=== PATIENT | male | born 1945 | race Caucasian/White ===

== ENCOUNTER 2016-11-26 13:41 | Inpatient (IN) | payer OTHER, MEDICARE ==
[2016-11-26] VITALS (12 sets, daily range): BP systolic 95–206; BP diastolic 64–110; PULSE 63–106; RESP 16–18; TEMP 97.8; O2SAT 96–100
[~2016-11-26] VITALS: Ht 185.4 cm; Wt 123.1 kg
[2016-11-26] MEDS ORDERED: MORPHINE SULFATE 8 MG/ML INJ ONE (13:44)
[2016-11-26] MEDS ORDERED: FUROSEMIDE 40 MG/4 ML VIAL ONE (13:53)
[2016-11-26] MEDS ORDERED: PROPOFOL 1000 MG/100 ML INJ 100 ML ONE ×2 (14:04→14:54)
[2016-11-26 14:07] LABS: AUTOMATED NEUTROPHIL # 14.9 TH/MM3 (1.8-7.7); BASOPHIL # 0.1 TH/MM3 (0-0.2); BASOPHIL % 0.4 % (0.0-2.0); EOSINOPHIL # 0.1 TH/MM3 (0-0.4); EOSINOPHIL % 0.5 % (0.0-4.0); HEMATOCRIT 40.9 % (39.0-51.0); HEMO FLAGS DIFF FINAL; I-STAT SODIUM 130 MMOL/L (138-146); LYMPH % 14.2 % (9.0-44.0); LYMPHOCYTE # 2.6 TH/MM3 (1.0-4.8); MEAN CELL VOLUME 85.3 FL (80.0-100.0); MEAN CORPUSCULAR HEMOGLOBIN 28.9 PG (27.0-34.0); MEAN CORPUSCULAR HGB CONC 33.9 % (32.0-36.0); MONO % 4.7 % (0.0-8.0); NEUT % 80.2 % (16.0-70.0); PLATELET COUNT 389 TH/MM3 (150-450); RED CELL DISTRIBUTION WIDTH 14.3 % (11.6-17.2); WHITE BLOOD COUNT 18.6 TH/MM3 (4.0-11.0)
[2016-11-26 14:15] LABS: INTERNATIONAL NORMALIZED RATIO 1.1 RATIO; PROTHROMBIN TIME - PATIENT 11.9 SEC (9.8-11.6)
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
[2016-11-26 14:16] LABS: APTT (PATIENT) 28.1 SEC (24.3-30.1)
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
[2016-11-26] MEDS ORDERED: DEXTROSE 50% IN WATER 50 ML SYRINGE ONE (14:33)
[2016-11-26] MEDS ORDERED: CALCIUM CHLORIDE 10% SOLN 1 GRAM/10 ML SYR ONE (14:34)
[2016-11-26] MEDS ORDERED: RESP: ALBUTEROL 2.5 MG/3 ML NEB (SCH) ONE ×2 (14:36→14:37)
[2016-11-26] MEDS ORDERED: CALCIUM GLUCONATE 10% 1 GM/10 ML VIAL ONE (14:38)
[2016-11-26] MEDS ORDERED: ETOMIDATE 20 MG/10 ML VIAL ONE (14:47)
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
[2016-11-26 15:19] LABS: BLOOD, URINE TRACE (NEG); COMMENT (UR) CATH-CULT NOT IND; CULTURE IF INDICATED CATH CULTURE NOT IND; GLUCOSE,URINE 1000 mg/dL (NEG); KETONE, URINE NEG (NEG); MUCUS URINE FEW /lpf (OCC); NITRITE,URINE NEG (NEG); PH, URINE 6.5 (5.0-8.5); URINE COLOR YELLOW (YELLW/STRAW)
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
[2016-11-26] MEDS ORDERED: IOHEXOL 350 MG/ML 10 ML VIAL (for RAD DIAG) IV ONE (15:28)
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
[2016-11-26] MEDS ORDERED: FURO1TAB60 PO (15:44)
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
[2016-11-26] MEDS ORDERED: MISCELLANEOUS NURSING INFORMATION XX SCH (16:45)
[2016-11-26] MEDS ORDERED: CHLORHEXIDINE GLUCONATE 2 % 1 PACK (2 CLOTHS) TOP PRN (16:45)
[2016-11-26] MEDS ORDERED: SODIUM CHLORIDE 0.9% FLUSH 10 ML FLUSH IV FLUSH PRN (16:45)
[2016-11-26] MEDS ORDERED: ETOMIDATE 40 MG/20 ML VIAL ONE (16:57)
[2016-11-26] MEDS ORDERED: ROCURONIUM INJ 50 MG/5 ML VIAL IV ONE (17:00)
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
[2016-11-26 17:22] LABS: ALT (GPT) 20 U/L (12-78); ANION GAP 12 MEQ/L (5-15); AST (GOT) 28 U/L (15-37); BICARBONATE 25.9 MEQ/L (21.0-32.0); BLOOD UREA NITROGEN 33 MG/DL (7-18); CHLORIDE 93 MEQ/L (98-107); GLOMERULAR FILTRATION RATE 50 ML/MIN (>89); POTASSIUM 3.9 MEQ/L (3.5-5.1); SODIUM (NA) 131 MEQ/L (136-145)
[2016-11-26 17:25] LABS: ALKALINE PHOSPHATASE 73 U/L (45-117); TOTAL BILIRUBIN ADULT 0.9 MG/DL (0.2-1.0)
[2016-11-26] MEDS ORDERED: ETOMIDATE 20 MG/10 ML VIAL IV PUSH ONE (17:45)
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
[2016-11-26] MEDS ORDERED: GLUCAGON 1 MG/ML VIAL IM/SQ PRN (18:00)
[2016-11-26] MEDS ORDERED: DEXTROSE 50% IN WATER 50 ML VIAL(D50) IV PRN (18:00)
[2016-11-26] MEDS ORDERED: SODIUM POLYSTYRENE SULFONATE SUSP 15 GM/60 ML CUP OG-TUBE SCH (18:00)
[2016-11-26] MEDS: INSULIN ASPART SUPPLEMENTAL SCALE SQ SCH (18:00)
[2016-11-26] MEDS: fentaNYL DRIP 250 ML IV SCH (19:32)
[2016-11-26 19:57] LABS: BLOOD GAS BASE EXCESS 4.2 mmol/L (-2-2); BLOOD GAS HCO3 27 mmol/L (22-26); BLOOD GAS METHEMOGLOBIN 1.1 % (0-2); BLOOD GAS O2 HGB SATURATION 95 % (90-100); BLOOD GAS PCO2 30 mmHg (38-42); BLOOD GAS PO2 92 mmHg (61-120); BLOOD GAS TOTAL HGB 12.6 G/DL (12.0-16.0); TEMP CORR TO 98.6
[2016-11-26 19:58] LABS: CRITICAL VALUE YES; DRAW SITE LT RADIAL; FIO2 40 %; NUMBER OF ARTERIAL PUNCTURES 1; OXYGEN DEVICE VENTILATOR; STAT NO; ULNAR PULSE PRESENT; VENT SETTINGS VOLUME AC 18/550/+5
[2016-11-26] MEDS: SODIUM CHLOR 0.9% 1000 ML INJ 1,000 ML IV SCH (21:01)
[2016-11-26] MEDS: CHLORHEXIDINE 0.12% (ORAL KIT) 15 ML CUP MT SCH (21:02)
[2016-11-26] MEDS: SODIUM CHLORIDE 0.9% FLUSH 10 ML FLUSH IV FLUSH SCH (21:02)
[2016-11-26] MEDS: PIPERACIL-TAZO 3.375 GM PREMIX 50 ML IV SCH (21:03)
[2016-11-26] MEDS: PROPOFOL 1000 MG/100 ML INJ 100 ML IV SCH ×2 (21:05→23:30)
[2016-11-26] MEDS: RESP: ALBUTEROL 2.5 MG/IPRATROPIUM 0.5 MG NEB (SCH) NEB (21:55)
[2016-11-27] VITALS (52 sets, daily range): BP systolic 90–129; BP diastolic 55–77; PULSE 67–96; RESP 17–26; TEMP 97.7–99.2; O2SAT 97–100
[2016-11-27] MEDS: PIPERACIL-TAZO 3.375 GM PREMIX 50 ML IV SCH ×4 (01:24→20:49)
[2016-11-27 01:26] LABS: BICARBONATE 25.4 MEQ/L (21.0-32.0)
[2016-11-27 01:28] LABS: POTASSIUM 4.1 MEQ/L (3.5-5.1)
[2016-11-27 01:54] LABS: CKMB 6.9 NG/ML (0.5-3.6)
[2016-11-27] MEDS: PROPOFOL 1000 MG/100 ML INJ 100 ML IV SCH ×6 (02:22→22:48)
[2016-11-27] MEDS: RESP: ALBUTEROL 2.5 MG/IPRATROPIUM 0.5 MG NEB (SCH) NEB ×4 (03:12→23:50)
[2016-11-27] MEDS: CHLORHEXIDINE GLUCONATE 2 % 1 PACK (2 CLOTHS) TOP SCH (03:30)
--- NOTE | 2016-11-27 05:41 | RADRPT ---
EXAM DATE/TIME: 11/27/2016 03:24 [facility] COMPARISON: CHEST SINGLE AP, November 26, 2016, 17:11. INDICATIONS : Shortness of breath. MEDICAL HISTORY : None. SURGICAL HISTORY : None. ENCOUNTER: Subsequent ACUITY: 2 days PAIN SCORE: 0/10 LOCATION: Bilateral chest FINDINGS: A single AP erect view of the chest was obtained again demonstrates endotracheal tube in place with t ip approximately 4 cm above the carlos. A nasogastric tube is again seen coursing through the esophag us and into the stomach. There is hazy opacity remaining at the left lung base with obscuration of th e left hemidiaphragm and blunting of costophrenic angle. The heart size is within normal limits with no perihilar edema. The right lung is clear. The patient is status post right mastectomy and axillary dissection. The bony thorax is otherwise unremarkable. CONCLUSION: 1. Hazy opacity remains at the left lung base with blunting of the costophrenic angle consistent with a small effusion. 2. The patient remains intubated. Deshawn De Dios MD on November 27, 2016 at 5:38 Board Certified Radiologist. This report was verified electronically.
[2016-11-27 05:45] LABS: AUTOMATED NEUTROPHIL # 6.4 TH/MM3 (1.8-7.7); BASOPHIL # 0.1 TH/MM3 (0-0.2); BASOPHIL % 0.6 % (0.0-2.0); EOSINOPHIL # 0.1 TH/MM3 (0-0.4); EOSINOPHIL % 0.8 % (0.0-4.0); HEMATOCRIT 38.1 % (39.0-51.0); HEMO FLAGS DIFF FINAL; LYMPH % 27.5 % (9.0-44.0); LYMPHOCYTE # 2.7 TH/MM3 (1.0-4.8); MEAN CELL VOLUME 84.7 FL (80.0-100.0); MEAN CORPUSCULAR HEMOGLOBIN 28.1 PG (27.0-34.0); MEAN CORPUSCULAR HGB CONC 33.2 % (32.0-36.0); MONO % 6.5 % (0.0-8.0); NEUT % 64.6 % (16.0-70.0); PLATELET COUNT 291 TH/MM3 (150-450); RED CELL DISTRIBUTION WIDTH 14.5 % (11.6-17.2); WHITE BLOOD COUNT 9.8 TH/MM3 (4.0-11.0)
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
[2016-11-27] MEDS: INSULIN ASPART SUPPLEMENTAL SCALE SQ SCH ×5 (06:00→23:35)
[2016-11-27 06:06] LABS: ALKALINE PHOSPHATASE 70 U/L (45-117); ALT (GPT) 22 U/L (12-78); ANION GAP 11 MEQ/L (5-15); AST (GOT) 55 U/L (15-37); BICARBONATE 29.2 MEQ/L (21.0-32.0); BLOOD UREA NITROGEN 34 MG/DL (7-18); CHLORIDE 94 MEQ/L (98-107); CREATINE KINASE 1246 U/L (39-308); GLOMERULAR FILTRATION RATE 52 ML/MIN (>89); POTASSIUM 3.3 MEQ/L (3.5-5.1); SODIUM (NA) 134 MEQ/L (136-145); TOTAL BILIRUBIN ADULT 0.8 MG/DL (0.2-1.0)
[2016-11-27 06:37] LABS: CKMB 6.7 NG/ML (0.5-3.6)
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
[2016-11-27] MEDS: CHLORHEXIDINE 0.12% (ORAL KIT) 15 ML CUP MT SCH ×2 (08:00→20:49)
[2016-11-27] MEDS: SODIUM CHLORIDE 0.9% FLUSH 10 ML FLUSH IV FLUSH SCH ×2 (08:55→20:49)
[2016-11-27] MEDS: ASPIRIN 81 MG CHEW TAB CHEW SCH (08:55)
[2016-11-27] MEDS: PANTOPRAZOLE SODIUM 40 MG VIAL IV SCH (08:55)
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
--- NOTE | 2016-11-27 11:42 | ECHRPT ---
Indication: eval LVEF CONCLUSIONS Normal left ventricular size. Wall thickness is normal. The left ventricular systolic function is severely reduced with an estimated ejection fraction in th e range of 20-25%. There is global hypokinesis Mitral annular calcification is present. BP: 94 / 62 HR: 67 Rhythm: Sinus MEASUREMENTS (Male / Female) Normal Values Technical Quality:Fair 2D ECHO LV Diastolic Diameter PLAX 4.9 cm 4.2 - 5.9 / 3.9 - 5.3 cm LV Systolic Diameter PLAX 4.4 cm IVS Diastolic Thickness 0.9 cm 0.6 - 1.0 / 0.6 - 0.9 cm LVPW Diastolic Thickness 0.8 cm 0.6 - 1.0 / 0.6 - 0.9 cm LV Relative Wall Thickness 0.3 LA Systolic Diameter LX 3.7 cm 3.0 - 4.0 / 2.7 - 3.8 cm DOPPLER Mitral E Point Velocity 27.0 cm/s Mitral A Point Velocity 47.4 cm/s Mitral E to A Ratio 0.6 TR Peak Velocity 164.0 cm/s TR Peak Gradient 10.8 mmHg FINDINGS LEFT VENTRICLE Normal left ventricular size. Wall thickness is normal. The left ventricular systolic function is severely reduced with an estimated ejection fraction in th e range of 20-25%. Global hypokinesis. RIGHT VENTRICLE Normal right ventricular size and systolic function. LEFT ATRIUM The left atrial size is normal. RIGHT ATRIUM The right atrial size is normal. ATRIAL SEPTUM Normal atrial septal thickness without atrial level shunting by limited color doppler interrogation. AORTA The aortic root and proximal ascending aorta are normal in size on limited imaging. MITRAL VALVE Mitral annular calcification is present. AORTIC VALVE Trileaflet aortic valve. No aortic valve stenosis or regurgitation. TRICUSPID VALVE Structurally normal tricuspid valve. No tricuspid valve stenosis or regurgitation. PULMONARY VALVE The pulmonary valve is not well visualized. VESSELS The inferior vena cava is normal in size. PERICARDIUM No pericardial effusion. She Pierce MD, FACC (Electronically Signed) Final Date:27 November 2016 11:42
--- NOTE | 2016-11-27 12:27 | EKG ---
Date Performed: 11/26/2016 Time Performed: 13:53:58 PTAGE: 89 years EKG: JUNCTIONAL TACHYCARDIA MARKED RIGHT AXIS DEVIATION INTRAVENTRICULAR CONDUCTION DELAY ABNORM AL ECG NO PREVIOUS TRACING DOCTOR: Tyler Arceo Interpretating Date/Time 11/27/2016 12:26:10
[2016-11-27] MEDS: SODIUM CHLOR 0.9% 1000 ML INJ 1,000 ML IV SCH ×2 (12:30→20:48)
--- NOTE | 2016-11-27 14:37 | EKG ---
Date Performed: 11/26/2016 Time Performed: 18:22:07 PTAGE: 89 years EKG: Sinus rhythm MARKED RIGHT AXIS DEVIATION INTRAVENTRICULAR CONDUCTION DELAY Compared to prior tracing no significa nt change ABNORMAL ECG PREVIOUS TRACING :11/26/16 DOCTOR: Tyler Arceo Interpretating Date/Time 11/27/2016 14:36:46
--- NOTE | 2016-11-27 14:41 | PD.ORT.PN ---
Subjective Subjective Remarks The patient is intubated and sedated. Patient is resting in bed in NAD. Objective Vitals Vital Signs Date Time Temp Pulse Resp B/P Pulse Ox O2 Delivery O2 Flow Rate FiO2 11/27/16 12:00 77 11/27/16 12:00 40 11/27/16 12:00 99.0 78 18 109/67 98 11/27/16 11:11 99 40 11/27/16 10:00 69 11/27/16 10:00 69 11/27/16 08:00 99.0 69 18 118/56 98 11/27/16 08:00 69 11/27/16 08:00 40 11/27/16 07:32 100 40 11/27/16 06:00 69 11/27/16 04:00 67 11/27/16 04:00 98.8 67 18 94/62 98 11/27/16 03:41 99 40 11/27/16 02:00 73 11/27/16 00:12 100 40 11/27/16 00:00 67 11/27/16 00:00 97.7 67 18 111/70 99 11/26/16 22:00 63 11/26/16 21:57 100 Ventilator 11/26/16 20:30 99 40 11/26/16 20:00 66 11/26/16 20:00 97.8 66 18 95/64 98 11/26/16 18:23 94 16 146/89 100 Ventilator 11/26/16 18:06 100 100 11/26/16 18:06 100 40 11/26/16 17:37 106 18 140/91 97 Ventilator 50 11/26/16 17:30 100 Non-Rebreather 15 100 11/26/16 17:12 50 11/26/16 17:10 98 16 206/110 99 Ventilator 11/26/16 17:00 105 16 152/85 96 Non-Rebreather 15 11/26/16 15:30 100 100 11/26/16 14:40 100 50 I/O 11/26/16 11/26/16 11/26/16 11/27/16 11/27/16 11/27/16 07:00 15:00 23:00 07:00 15:00 23:00 Intake Total 305 ml 810 ml Output Total 1625 ml 225 ml Balance -1320 ml 585 ml Intake IV Total 305 ml 810 ml Output Urine Total 1625 ml 225 ml # Bowel Movements 0 0 Result Diagram: 11/27/169 11/27/16448 Imaging Last 24 hours Impressions Chest X-Ray 11/27/16 0600 Signed Impressions: Service Date/Time: Sunday, November 27, 2016 03:24 - CONCLUSION: 1. Hazy opacity remains at the left lung base with blunting of the costophrenic angle consistent with a small effusion. 2. The patient remains intubated. Deshawn De Dios MD Objective Remarks Patient is resting in bed with abductor pillow and knee immobilizer in place. The patient has 2 + pedal pulse to the right LE. RLE is warm. Leg lengths are equal. Abrasions to face and left knee. Skin is intact about the right hip. Last 48 hours Impressions Chest X-Ray 11/27/16 06 Signed Impressions: Service Date/Time: Sunday, November 27, 2016 03:24 - CONCLUSION: 1. Hazy opacity remains at the left lung base with blunting of the costophrenic angle consistent with a small effusion. 2. The patient remains intubated. Deshawn De Dios MD Pelvis X-Ray 11/26/161343 Signed Impressions: Service Date/Time: Saturday, November 26, 2016 13:36 - CONCLUSION: 1. Right hip arthroplasty dislocation. Sandro Barreto MD Head CT 11/26/161343 Signed Impressions: Service Date/Time: Saturday, November 26, 2016 15:02 - CONCLUSION: Unremarkable study. Mary Sánchez MD Chest X-Ray 11/26/161343 Signed Impressions: Service Date/Time: Saturday, November 26, 2016 13:36 - CONCLUSION: 1. Mild left lower lobe airspace disease with associated volume loss consistent with atelectasis versus contusion. 2. Mild interstitial prominence may reflect subtle positive fluid balance. Sandro Barreto MD Chest CT 11/26/161343 Signed Impressions: Service Date/Time: Saturday, November 26, 2016 15:04 - CONCLUSION: Bilateral lower lobe airspace process could be traumatic contusions and/or pneumonia. Mary Sánchez MD Cervical Spine CT 7/31/17 1344 Signed Impressions: Service Date/Time: Saturday, November 26, 2016 15:03 - CONCLUSION: Bilateral neural foramina compromise C6-7. Mary Sánchez MD Abdomen/Pelvis CT 11/26/16 1344 Signed Impressions: Service Date/Time: Saturday, November 26, 2016 15:04 - CONCLUSION: 1. Right proximal ureteral stone, bilateral renal stones and postsurgical changes in right inguinal region. 2. Probable benign subcutaneous nodule right anterior abdominal wall without acute process. Mary Sánchez MD Shoulder X-Ray 11/26/16 0000 Signed Impressions: Service Date/Time: Saturday, November 26, 2016 13:36 - CONCLUSION: 1. No gross fracture or dislocation. 2. Degenerative changes, as above. Sandro Barreto MD Hip X-Ray 11/26/16 0000 Signed Impressions: Service Date/Time: Saturday, November 26, 2016 17:19 - CONCLUSION: Intact total hip prosthesis for technique. Mary Sánchez MD Chest X-Ray 11/26/16 0000 Signed Impressions: Service Date/Time: Saturday, November 26, 2016 17:11 - CONCLUSION: Slight CHF. Mary Sánchez MD Chest X-Ray 11/26/16 0000 Signed Impressions: Service Date/Time: Saturday, November 26, 2016 14:07 - CONCLUSION: 1. Endotracheal tube in appropriate position with tip measuring approximately 5.7 cm from the carlos. Nasogastric tube also courses beyond the GE junction. 2. Underinflation with stable bibasilar interstitial opacities. Johnny Milan MD Ankle X-Ray 11/26/16 0000 Signed Impressions: Service Date/Time: Saturday, November 26, 2016 17:26 - CONCLUSION: Soft tissue swelling and no definite fracture for technique. Mary Sánchez MD I have reviewed the post reduction x-rays which does show that the previously dislocated right hip is now reduced. Assessment & Plan Assessment and Plan Right hip dislocation with closed reduction 1. Patient should maintain knee immobilizer to RLE and abductor pillow while in bed. 2. When extubated patient can be WBAT on the RLE 3. Ice to the hip PRN 4. F/U with Dr. Fine in the office in 1-2 weeks when discharged from hospital Roverto Zelaya Nov 27, 2016 14:41
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
[2016-11-27] MEDS: ENOXAPARIN SODIUM 40 MG/0.4 ML SYRINGE SQ SCH (17:17)
[2016-11-27] MEDS: fentaNYL DRIP 250 ML IV SCH (20:49)
[2016-11-28] VITALS (49 sets, daily range): BP systolic 93–164; BP diastolic 57–86; PULSE 74–113; RESP 3–26; TEMP 98.5–99.1; O2SAT 97–100
[2016-11-28] MEDS: PROPOFOL 1000 MG/100 ML INJ 100 ML IV SCH ×6 (01:29→22:32)
[2016-11-28] MEDS: PIPERACIL-TAZO 3.375 GM PREMIX 50 ML IV SCH ×4 (01:29→20:24)
[2016-11-28] MEDS: CHLORHEXIDINE GLUCONATE 2 % 1 PACK (2 CLOTHS) TOP SCH (04:00)
[2016-11-28] MEDS: RESP: ALBUTEROL 2.5 MG/IPRATROPIUM 0.5 MG NEB (SCH) NEB ×4 (04:03→20:18)
[2016-11-28] MEDS: INSULIN ASPART SUPPLEMENTAL SCALE SQ SCH ×4 (06:07→22:34)
[2016-11-28] MEDS: SODIUM CHLORIDE 0.9% FLUSH 10 ML FLUSH IV FLUSH SCH ×2 (09:00→20:24)
[2016-11-28] MEDS: ASPIRIN 81 MG CHEW TAB CHEW SCH (09:00)
[2016-11-28 09:50] LABS: HEMATOCRIT 40.3 % (39.0-51.0); MEAN CELL VOLUME 85.1 FL (80.0-100.0); MEAN CORPUSCULAR HEMOGLOBIN 27.9 PG (27.0-34.0); MEAN CORPUSCULAR HGB CONC 32.8 % (32.0-36.0); PLATELET COUNT 257 TH/MM3 (150-450); RED BLOOD COUNT 4.73 MIL/MM3 (4.50-5.90); RED CELL DISTRIBUTION WIDTH 14.5 % (11.6-17.2); REVIEW FLAG FINAL; WHITE BLOOD COUNT 10.1 TH/MM3 (4.0-11.0)
[2016-11-28] MEDS: fentaNYL DRIP 250 ML IV SCH ×2 (10:03→20:27)
[2016-11-28] MEDS: PANTOPRAZOLE SODIUM 40 MG VIAL IV SCH (10:03)
[2016-11-28] MEDS: CHLORHEXIDINE 0.12% (ORAL KIT) 15 ML CUP MT SCH ×2 (10:05→20:25)
[2016-11-28] MEDS: SODIUM CHLOR 0.9% 1000 ML INJ 1,000 ML IV SCH ×2 (10:05→20:25)
[2016-11-28 10:09] LABS: ANION GAP 11 MEQ/L (5-15); AST (GOT) 45 U/L (15-37); BICARBONATE 28.6 MEQ/L (21.0-32.0); BLOOD UREA NITROGEN 26 MG/DL (7-18); CHLORIDE 96 MEQ/L (98-107); GLOMERULAR FILTRATION RATE 54 ML/MIN (>89); MAGNESIUM 2.1 MG/DL (1.5-2.5); POTASSIUM 3.5 MEQ/L (3.5-5.1); SODIUM (NA) 136 MEQ/L (136-145)
[2016-11-28 10:10] LABS: ALT (GPT) 22 U/L (12-78)
[2016-11-28 10:12] LABS: ALKALINE PHOSPHATASE 76 U/L (45-117); TOTAL BILIRUBIN ADULT 0.8 MG/DL (0.2-1.0)
[2016-11-28] MEDS ORDERED: POTASSIUM CHLOR 40 MEQ PREMIX 100 ML IV ONE (13:15)
[2016-11-28] MEDS ORDERED: HEPARIN-NS/PF INJ 500 ML ONE (13:21)
[2016-11-28] MEDS ORDERED: IOHEXOL 350 MG/ML 100 ML BTL (for Cath Lab) OTHER ONE (14:09)
[2016-11-28] MEDS ORDERED: IOHEXOL 350 MG/ML 50 ML BTL (for Cath Lab) OTHER ONE (14:09)
[2016-11-28] MEDS ORDERED: HEPARIN SODIUM - IV 10,000 UNITS/10 ML VIAL ONE ×2 (14:38→15:12)
[2016-11-28] MEDS ORDERED: CLOPIDOGREL 300 MG TAB ONE (15:30)
[2016-11-28] MEDS ORDERED: SODIUM CHLOR 0.9% 1000 ML INJ 1,000 ML IV SCH (15:49)
--- NOTE | 2016-11-28 15:49 | CATHPROC ---
[employer] HIS Report Study Information Study Number Scheduled Start Study Start [id number] 11/28/2016 Nov 28 2016 1:26PM Referring Institution Admit Source Facility Department 1 Emergency department [facility] - Data Base Design Analyst Physician and Clinical Staff Initial Immanuel Walker Utility Bill Collector Alphonso Rowe,[place] Utility Bill Collector Emily Diaz,[place] Recorder Ceasar Baron,RT(R) Scrub Edda Richardson,RT(R) Procedures Performed Procedure Location (Site) Vessel Name Coronary Angiograms LCA Left Coronary Coronary Angiograms RCA Right Coronary Drug Eluting Inflatio LAD Mid Left Coronary PTCA LAD Mid Left Coronary PTCA ADD ON'S Wire insertion Fem Art (left) Femoral Art Equipment Time Dice Manager Description Size Mfg Part Number Used/Scraped WIRE, BALANCE MIDDLEWEIGHT [id number] 14:54 COLON [employer] 190CM Used 190CM *[id number] TRANSDUCER, TRUWAVE [id number] 13:48 VELAZQUEZ DIAZ * Used W/STOCKCOCK *[id number]- INTRODUCER SET, 14:15 [employer]OOK INC. FR 5 SC-NT-U-SST Used MICROPUNCTURE, STIFFENED *[id number] [id number] *[id number] [id number] *[id number] 670-004-00 *[id number] [id number] *[id number] 13:48 Synthesio INDUSTRIES PACK, CCL CUSTOM * Used *[id number] BALLOON, 2.5 X 12MM NC [id number] 15:18 MEDTRONIC 12MM Used EUPHORA *[id number] BALLOON, 2.5 X 12MM SPRINTER [id number] 15:03 MEDTRONIC 12MM Used LEGEND *[id number] STENT, 2.5 18 RESOLUTE [id number] 15:10 MEDTRONIC 2.5 18 Used INTEGRITY RX *[id number] 14:54 MEDTRONIC/AVE EBU 3.5 Z2 GUIDE CATHETER FR 6 Used *[id number] [id number] 14:39 iwi MEDICAL 30 ADONAY INDEFLATOR Used *[id number] 14:37 iwi MEDICAL SHEATH, FR6.5 PRELUDE 11CM FR 6.5 038ACT Used *[id number] [id number] 13:48 iwi MEDICAL WIRE, 3MMJ .035 180CM 180CM Used *[id number] 13:48 NAMIC MANIFOLD, 4 PORT * Used *[id number] 13:48 NYCOMED OMNIPAQUE, 350 MG, 150ML 150ML [id number] Used [id number] 13:48 SPARKS MEDICAL BLANKET,WARM AIR CCL * Used *[id number] [id number] 13:49 TERUMO MEDICAL SHEATH, FR5 TERUMO (10CM) FR 5 Used *[id number] 14:38 VOLCANO PRIME WIRE, VERRATA 185CM 185CM [id number] *[id number] Used Equipment Model, Serial, Lot Number and Expiration Data Description Model Number Serial Number Lot Number Expiration Date BALLOON, 2.5 X 12MM NC [id number] 08-27-2018 EUPHORA PRIME WIRE, VERRATA 185CM [id number] 10-27-2019 STENT, 2.5 18 RESOLUTE [id number] 09-09-2017 INTEGRITY RX History: Allergies Allergy Reaction No Known Allergies History: Risk Factors Family History of Hypertension Dyslipidemia Previous KS Previous Heart Failure Premature CAD Yes No Yes No No Prior Valve Prior PCI Prior CABG Surgery No No No Cerebrovascular Peripheral Artery Chronic Lung On Dialysis Diabetes Diabetes Therapy Disease Disease Disease No No No No Yes Insulin History: Stress Tests Stress or Imaging Studies Performed No Labs Hgb (g/dl) Hct (%) WBC (l/cumm) Platelets (thousands) 11.60-17.00 35.00-51.00 4.00-11.00 150.00-450.00 13.2 40.3 10.1 257 Glucose (mg/dl) BUN (mg/dl) Creatinine (mg/dl) BUN:Creatinine (1:x) 74.00-106.00 7.00-18.00 0.50-1.30 10.00-20.00 182 26 1.3 20 Na (meq/l) K (meq/l) 136.00-145.00 3.50-5.10 136 3.5 INR (PTT:PT) 0.90-1.10 1.1 Troponin I (ng/ml) CPK-MB (ng/ML) 0.02-0.05 0.50-3.60 0.25 Not Drawn Medication Medication Total Dose (Bolus/Oral) Medication Total Dosage/Unit 1% XYLOCAINE 20 mL FENTANYL 50 mcg/hr HEPARIN 12896 units PLAVIX 600 mg PROPOFOL 40 mg/kg/min Medications (Bolus/Oral) Medication Time Given Dosage/Unit Administered By Reason PROPOFOL 11/28/2016 1:40:39 PM 40 mg/kg/min Immanuel Alegre Patient arrived on 40 mg/kg/min PROPOFOL given by Immanuel Alegre in Left Forearm via Peripheral IV . Pump/Drip Flow = 0 ml/hr using [Solution Name]. Ordered by Immanuel Alegre. FENTANYL 11/28/2016 1:40:47 PM 50 mcg/hr Immanuel Alegre Patient arrived on 50 mcg/hr FENTANYL given by Immanuel Alegre in Left Forearm via Peripheral IV. P ump/Drip Flow = 0 ml/hr using [Solution Name]. Ordered by Immanuel Alegre. 1% XYLOCAINE 11/28/2016 2:10:58 PM 20 mL Immanuel Alegre Patient arrived on 20 mL 1% XYLOCAINE given by Immanuel Alegre in Left Groin via Subcutaneous. Orde red by Immanuel Alegre. HEPARIN 11/28/2016 2:39:13 PM 6200 units Emily Diaz Patient arrived on 6200 units HEPARIN given by Emily Diaz RN in Left Hand via Peripheral IV. Ordered by Immanuel Alegre. HEPARIN 11/28/2016 2:58:18 PM 2000 units Emily Diaz Patient arrived on 2000 units HEPARIN given by Emily Diaz RN in Left Hand via Peripheral IV. Ordered by Immanuel Alegre. HEPARIN 11/28/2016 3:13:19 PM 3000 units Immanuel Alegre 3000 units HEPARIN given in lab by Immanuel Alegre in Left Groin via Intra-coronary. Ordered by Pet Immanuel arevalo. PLAVIX 11/28/2016 3:27:35 PM 600 mg Emily Diaz 600 mg PLAVIX given in lab by Emily Diaz RN via Oral. Ordered by Immanuel Alegre. Initial Case Assessment Cardiovascular HR Rhythm NIBP 60 sr 122/85 Edema Present Skin color Skin None Normal Warm Dry Circulatory - Right Pulses Dorsalis Pedis Femoral 2 2 Scale (0,1,2,3,4,d) Scale (0,1,2,3,4,d) Neurological State Unresponsive Respiration - General Respiration Rate SpO2 (%) (B/min) 18 100 Respiration - Ventilator Type Intubation Type Alarm Setting ET(oral) On Respiration - Ventilator Settings TV (ml) IMV (L) FIO2 (%) PEEP (cm/H2O) 550 18 100 5 Final Case Assessment Cardiovascular HR NIBP 60 157/91 Edema Present Skin color Skin None Normal Warm Dry Circulatory - Right Pulses Dorsalis Pedis Femoral 2 2 Scale (0,1,2,3,4,d) Scale (0,1,2,3,4,d) Respiration - General Respiration Rate SpO2 (%) (B/min) 18 100 Respiration - Ventilator Settings TV (ml) IMV (L) FIO2 (%) PEEP (cm/H2O) 550 18 100 5 Chronological Log Time Study Chronological Log 13:22:08 Patient arrived via Bed. 13:26:12 Patient Name, D.O.B, / Armband Verified By R.N. 13:26:14 Consent signed by the physician and the patient and verified by the Data Base Design Analyst staff. 13:26:15 Pre-op and post- op instructions given; patient acknowledges understanding of instructions. 13:26:56 Presedation assessment performed by Data Base Design Analyst RN. 13:26:58 Patient has been NPO for More than 6Hrs. 13:31:55 Skin Breakdown-noted is left foot ulcer and bilateral groins and lower abdomen breakdown. 13:32:20 Patient Warmer Placed on the Table. Vitals capture started with the following parameters, Patient=Adult, Interval=5 min, Initial Pr evgvkk=885 mmHg, 13:37:38 Deflation Rate=5 mmHg 13:38:12 A # 22 IV was noted in the Hand (left). Grade = 0 13:38:17 HR=60 bpm, MZWY=095/79 mmhg, Resp=18 B/min, Johnson=5 13:38:35 A # 20 IV was noted in the Forearm (left). Grade = 0 Patient arrived on 40 mg/kg/min PROPOFOL given by Immanuel Alegre in Left Forearm via Periphe ral IV. Pump/Drip 13:40:39 Flow = 0 ml/hr using [Solution Name]. Ordered by Immanuel Alegre. Patient arrived on 50 mcg/hr FENTANYL given by Immanuel Alegre in Left Forearm via Peripheral IV. Pump/Drip Flow = 13:40:47 0 ml/hr using [Solution Name]. Ordered by Immanuel Alegre. Assessment: Initial Case, HR=60 BPM, Rhythm=sr, ANPG=038/85 mmhg, Edema=None, Color=Normal, Ski n = Warm, Dry Right Pulses: Tyrese Ped=2, Femoral=2 13:43:06 Neurological: State=Unresponsive Respiration: Resp=18 B/min, ZbB4=815 %, Type=ET(Oral), Alarm=On, DQ=457 mL, IMV=18 L, WYM2=977 %, PEEP=5 cm/H2O 13:43:49 HR=76 bpm, OTNV=379/85 mmhg, FbD9=291.0 %, Resp=18 B/min, Johnson=5 13:45:17 Right groin prepped with 2% chlorhexidine, and with a 3 min. waiting time. 13:48:13 HR=60 bpm, DAJK=176/81 mmhg, XhQ8=981.0 %, Resp=18 B/min, Johnson=5 13:52:32 Reference ECG taken 13:53:14 HR=60 bpm, HBIW=430/80 mmhg, AwA2=786.0 %, Resp=18 B/min, Johnson=5 13:55:14 Pressure channel 1 zeroed. 13:58:13 HR=61 bpm, EIZU=388/84 mmhg, GyO8=628.0 %, Resp=18 B/min, Johnson=5 14:02:13 MD arrived. 14:03:17 HR=60 bpm, GHJR=790/87 mmhg, QxA9=718.0 %, Resp=18 B/min, Johnson=5 14:08:18 HR=60 bpm, SIXP=882/81 mmhg, VsW0=792.0 %, Resp=18 B/min, Johnson=5 Time Out. Correct patient, correct procedure,correct physician, ,power injector not loaded with contrast with surgical 14:08:24 team present. Time Out Concurred by MD, individual staff and COMPUTER NUMERIC CONTROL SETTER in procedure. Not loaded at t his time. 14:08:46 Presedation re-assessment performed by Data Base Design Analyst RN. 14:08:47 Case Start Patient arrived on 20 mL 1% XYLOCAINE given by Immanuel Alegre in Left Groin via Subcutaneous . Ordered by 14:10:58 Immanuel Alegre. 14:13:19 HR=70 bpm, KHMY=839/71 mmhg, VrV2=083.0 %, Resp=18 B/min, Johnson=5 14:13:59 Access site was Left Femoral Artery. left art A INTRODUCER SET, MICROPUNCTURE, STIFFENED FR 5 was advanced into the Fem Art (left) using the Percutaneous 14:14:09 technique. 14:14:52 A SHEATH, FR5 TERUMO (10CM) FR 5 was exchanged in the Fem Art (left). This was necessary in order ~REASON~. 14:17:06 An injection in the Fem Art (left) was made through the SHEATH, FR5 TERUMO (10CM) FR 5. A JR 4.0 INFINITI CATHETER FR 5 was advanced over a wire. OMNIPAQUE, 350 MG, 150ML 150ML was us ed for 14:17:19 injections. 14:18:14 HR=60 bpm, KSMH=059/74 mmhg, DfP4=329.0 %, Resp=18 B/min, Johnson=5 Recorded Pressure: LV, HR=78, Condition=Condition 1 14:18:14 (Left Ventricle) LV 113/16/20 Recorded Pressure: LV, HR=38, Condition=Condition 1 14:18:32 (Left Ventricle) LV 115/12/17 Recorded Pressure: LV, Ao, HR=91, Condition=Condition 1 14:18:53 (Left Ventricle) LV 118/11/22, (Aorta) Ao 112/57/80 Recorded Pressure: Ao, HR=92, Condition=Condition 1 14:19:31 (Aorta) Ao 111/61/83 14:20:52 The RCA was injected and visualized at various angles. OMNIPAQUE, 350 MG, 150ML 150ML used . After removing the current catheter a 3DRC INFINITI CATHETER FR 5 was advanced over a WIRE, 3MM J .035 180CM 14:22:28 180CM. 14:23:17 HR=60 bpm, AZNA=638/73 mmhg, NbJ7=634.0 %, Resp=18 B/min, Johnson=5 14:23:46 The RCA was injected and visualized at various angles. OMNIPAQUE, 350 MG, 150ML 150ML used . After removing the current catheter a JL 4.0 GUIDE CATHETER FR 6 was advanced over a WIRE, 3MMJ .035 180CM 14:26:16 180CM. 14:28:14 HR=60 bpm, CXDR=436/95 mmhg, WmG5=920.0 %, Resp=18 B/min, Johnson=5 14:28:30 The LCA was injected and visualized at various angles. OMNIPAQUE, 350 MG, 150ML 150ML used . 14:33:21 HR=60 bpm, SIFA=996/84 mmhg, MoW9=191.0 %, Resp=18 B/min, Johnson=5 14:35:15 Catheter was removed A SHEATH, FR6.5 PRELUDE 11CM FR 6.5 was exchanged in the Fem Art (left). This was necessary in order to 14:36:24 accomodate a larger catheter. A 3DRC GUIDE CATHETER FR 6 was advanced over a wire. OMNIPAQUE, 350 MG, 150ML 150ML was used fo r 14:37:57 injections. 14:38:20 HR=60 bpm, OWIG=240/88 mmhg, PoP7=056.0 %, Resp=18 B/min, Johnson=5 14:38:38 contrast and 30 ADONAY INDEFLATOR added. Patient arrived on 6200 units HEPARIN given by Emily Diaz RN in Left Hand via Periphera l IV. Ordered by 14:39:13 Immanuel Alegre. 14:39:33 Pressure channel 1 zeroed. 14:42:08 A PRIME WIRE, VERRATA 185CM 185CM was inserted via Fem Art (left). 14:43:21 HR=60 bpm, YQKS=549/83 mmhg, TyR3=334.0 %, Resp=18 B/min, Johnson=5 14:45:47 Interventional wire has crossed the lesion 14:48:18 HR=53 bpm, SDNS=335/91 mmhg, TbK3=429.0 %, Resp=18 B/min, Johnson=5 14:51:06 Flow Wire was was placed in the RCA. The FFR measures ~FFR~ percent. The IFR measures 0.94 Percent. 14:51:39 Wire removed After removing the current catheter a EBU 3.5 Z2 GUIDE CATHETER FR 6 was advanced over a WIRE, 3MMJ .035 14:52:54 180CM 180CM. 14:53:23 HR=60 bpm, FKHK=779/88 mmhg, AeH2=536.0 %, Resp=18 B/min, Johnson=5 14:56:03 A WIRE, BALANCE MIDDLEWEIGHT 190CM 190CM was inserted via Fem Art (left). 14:57:41 ACT (Normal Range 90-180) = 244 Patient arrived on 2000 units HEPARIN given by Emily Diaz RN in Left Hand via Periphera l IV. Ordered by 14:58:18 Immanuel Alegre. 14:58:24 HR=60 bpm, LPMY=282/84 mmhg, ZmP0=162.0 %, Resp=18 B/min, Johnson=5 14:59:13 Interventional wire has crossed the lesion A BALLOON, 2.5 X 12MM SPRINTER LEGEND 12MM was inserted over WIRE, BALANCE MIDDLEWEIGHT 190CM 1 90CM 15:01:58 via the LAD Mid. A BALLOON, 2.5 X 12MM SPRINTER LEGEND 12MM over a WIRE, BALANCE MIDDLEWEIGHT 190CM 190CM in the LAD 15:02:47 Mid was inflated using a 30 ADONAY INDEFLATOR at 12 adonay for 34 sec. 15:03:25 HR=60 bpm, BEIU=009/84 mmhg, AaC1=829.0 %, Resp=18 B/min, Johnson=5 15:08:20 HR=60 bpm, VWUG=360/90 mmhg, KlD7=344.0 %, Resp=18 B/min, Johnson=5 15:09:13 Balloon Removed. A STENT, 2.5 18 RESOLUTE INTEGRITY RX 2.5 18 was advanced through a EBU 3.5 Z2 GUIDE CATHETER F R 6 over a 15:11:10 WIRE, BALANCE MIDDLEWEIGHT 190CM 190CM. 15:11:56 ACT (Normal Range 90-180) = 240 15:13:19 3000 units HEPARIN given in lab by Immanuel Alegre in Left Groin via Intra-coronary. Orde red by Immanuel Alegre. 15:13:23 HR=60 bpm, MVXK=655/91 mmhg, SkQ1=391.0 %, Resp=18 B/min, Johnson=5 A STENT, 2.5 18 RESOLUTE INTEGRITY RX 2.5 18 was deployed using a 30 ADONAY INDEFLATOR at 12 atmos pheres for 15:17:04 30 seconds in the LAD Mid. 15:17:19 Delivery device removed A BALLOON, 2.5 X 12MM NC EUPHORA 12MM was inserted over WIRE, BALANCE MIDDLEWEIGHT 190CM 190CM via 15:18:00 the LAD Mid. 15:18:24 HR=60 bpm, NOUQ=374/89 mmhg, BcL5=303.0 %, Resp=18 B/min, Johnson=5 A BALLOON, 2.5 X 12MM NC EUPHORA 12MM over a WIRE, BALANCE MIDDLEWEIGHT 190CM 190CM in the LAD Mid 15:19:30 was inflated using a 30 ADONAY INDEFLATOR at 16 adonay for 25 sec. A BALLOON, 2.5 X 12MM NC EUPHORA 12MM over a WIRE, BALANCE MIDDLEWEIGHT 190CM 190CM in the LAD Mid 15:21:48 was inflated using a 30 ADONAY INDEFLATOR at 22 adonay for 27 sec. 15:22:48 Balloon Removed. 15:23:25 HR=60 bpm, WNZP=696/94 mmhg, NmH4=838.0 %, Resp=18 B/min, Johnson=5 15:23:52 ACT (Normal Range 90-180) = 324 15:25:02 Wire removed 15:25:24 Catheter was removed 15:27:35 600 mg PLAVIX given in lab by Emily Diaz, RN via Oral. Ordered by Immanuel Alegre . 15:28:25 HR=60 bpm, PKBC=827/91 mmhg, DuZ3=886.0 %, Resp=18 B/min, Johnson=5 Assessment: Final Case, HR=60 BPM, QSDT=002/91 mmhg, Edema=None, Color=Normal, Skin = Warm, Dr y 15:31:17 Right Pulses: Tyrese Ped=2, Femoral=2 Respiration: Resp=18 B/min, WeY9=493 %, JE=358 mL, IMV=18 L, HWU3=623 %, PEEP=5 cm/H2O 15:32:19 Catheter(s) removed without difficulty 15:32:21 In the Fem Art (left) the SHEATH, FR6.5 PRELUDE 11CM FR 6.[address] by Immanuel Odell. 15:32:28 Case End 15:32:30 Sterile dressing applied to site 15:32:32 No case complications noted. 15:32:34 Cine recording checked. 15:33:28 HR=60 bpm, OEOS=997/92 mmhg, VfF3=136.0 %, Resp=18 B/min, Johnson=5 15:34:43 Bedside Report will be given. 15:34:45 Implantable Device card placed in patient's chart. 15:34:48 Contrast Scanned 15:34:53 Vitals capture stopped. 15:34:59 Patient moved to stretcher End Study - Contrast Media Used In Study Contrast Total Opened (mL) Total Used (mL) Total Wasted (mL) Omnipaque 140 140 0 End Study - Maximum Contrast Load Max Contrast Load (mL) 461.5 End Study - Radiation Exposure Fluoro Time (minutes) 14.2 End Study - Patient Disposition Complications Transferred To Interventional Outcome No Critical Care Bed successful
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
[2016-11-28] MEDS: ENOXAPARIN SODIUM 40 MG/0.4 ML SYRINGE SQ SCH (16:00)
--- NOTE | 2016-11-28 16:39 | PD.CARD.PN ---
Subjective Subjective Remarks Doing well post-cath Sedated on the vent Objective Medications Current Medications Medications (Trade) Dose Ordered Sig/Devin Route Start Time Stop Time Status Last Admin (NS 1000 ml Inj) 1,000 ml @ 75 mls/hr [id number] IV 11/26/16 16:34 11/28/16 10:05 (NS Flush) 2 ml UNSCH PRN IV FLUSH 11/26/16 16:45 (NS Flush) 2 ml BID IV FLUSH 11/26/16 21:00 11/27/16 20:49 (Peridex 0.12% Liq) 15 ml BID@08,20 MT 11/26/16 20:00 11/28/16 10:05 (Protonix Inj) 40 mg DAILY IV 11/27/16 09:00 11/28/16 10:03 Miscellaneous Information 1 Q361D XX 11/26/16 16:45 11/26/16 16:45 (Chlorhexidine 2% Cloth) 3 pack Taper DAILY@04 TOP 11/27/16 04:00 11/23/17 03:59 11/28/16 04:00 Chlorhexidine Gluconate 3 pack 3 pack UNSCH PRN TOP 11/26/16 16:45 Propofol 100 ml @ 0 mls/hr TITRATE IV 11/26/16 16:45 11/28/16 10:03 Fentanyl Citrate 250 ml @ 0 mls/hr CONTINUOUS IV 11/26/16 17:15 11/28/16 10:03 (Zosyn 3.375 Gm Premix) 50 ml @ 100 mls/hr Q6H IV 11/26/16 20:00 11/28/16 10:03 (NovoLOG SUPPLEMENTAL SCALE) 1 Q6HR SQ 11/26/16 18:00 11/28/16 12:00 (D50w (Vial) Inj) 25 ml UNSCH PRN IV 11/26/16 18:00 (Glucagon Inj) 1 mg UNSCH PRN IM/SQ 11/26/16 18:00 (fentaNYL INJ) 100 mcg Q4HR PRN IV PUSH 11/26/16 18:00 (Aspirin Chew) 81 mg DAILY CHEW 11/27/16 09:00 11/27/16 08:55 Enoxaparin Sodium 40 mg 40 mg Q24H SQ 11/27/16 16:00 11/27/16 17:17 Potassium Chloride 100 ml @ 25 mls/hr ONCE ONCE IV 11/28/16 13:15 11/28/16 17:14 11/28/16 16:27 (NS 1000 ml Inj) 1,000 ml @ 50 mls/hr Q20H IV 11/28/16 15:49 11/29/16 03:48 11/28/16 16:28 (Plavix) 75 mg DAILY PO 11/29/16 09:00 Vital Signs / I&O Vital Signs Date Time Temp Pulse Resp B/P Pulse Ox O2 Delivery O2 Flow Rate FiO2 11/28/16 16:08 113 11/28/16 16:07 112 11/28/16 16:00 110 11/28/16 15:55 100 100 11/28/16 13:35 100 100 11/28/16 12:00 90 11/28/16 11:53 100 40 11/28/16 10:00 81 11/28/16 09:28 87 11/28/16 09:16 100 40 11/28/16 08:30 100 11/28/16 08:01 101 11/28/16 08:00 101 11/28/16 06:00 75 11/28/16 04:53 97 40 11/28/16 04:00 93 11/28/16 04:00 40 11/28/16 04:00 98.5 91 18 126/86 99 11/28/16 02:00 100 11/28/16 00:00 40 11/28/16 00:00 98.7 75 18 93/59 100 11/28/16 00:00 75 11/27/16 22:00 78 11/27/16 20:23 100 40 11/27/16 20:00 99.2 78 18 95/62 100 11/27/16 20:00 78 11/27/16 20:00 40 11/27/16 18:00 77 I/O 11/27/16 11/27/16 11/27/16 11/28/16 11/28/16 11/28/16 07:00 15:00 23:00 07:00 15:00 23:00 Intake Total 810 ml 575 ml 720 ml 1160 ml Output Total 225 ml 350 ml 350 ml 200 ml Balance 585 ml 225 ml 370 ml 960 ml Intake IV Total 810 ml 575 ml 720 ml 1160 ml Output Urine Total 225 ml 350 ml 350 ml 200 ml # Bowel Movements 0 0 0 0 Physical Exam GENERAL: Sedated on the vent SKIN: Warm and dry. HEAD: Atraumatic. Normocephalic. EYES: Pupils equal and round. No scleral icterus. No injection or drainage. ENT: No nasal bleeding or discharge. Mucous membranes pink and moist. NECK: Trachea midline. No JVD. CARDIOVASCULAR: Regular rate and rhythm. RESPIRATORY: No accessory muscle use. Decreased breath sounds bilaterally GASTROINTESTINAL: Abdomen soft, non-tender, nondistended. Hepatic and splenic margins not palpable. MUSCULOSKELETAL: Extremities without clubbing, cyanosis, or edema. No obvious deformities. NEUROLOGICAL: Sedated on the vent PSYCHIATRIC: Sedated on the vent Laboratory Laboratory Tests Test 11/28/16 09:36 White Blood Count 10.1 TH/MM3 Red Blood Count 4.73 MIL/MM3 Hemoglobin 13.2 GM/DL Hematocrit 40.3 % Mean Corpuscular Volume 85.1 FL Mean Corpuscular Hemoglobin 27.9 PG Mean Corpuscular Hemoglobin 32.8 % Concent Red Cell Distribution Width 14.5 % Platelet Count 257 TH/MM3 Mean Platelet Volume 7.1 FL Sodium Level 136 MEQ/L Potassium Level 3.5 MEQ/L Chloride Level 96 MEQ/L Carbon Dioxide Level 28.6 MEQ/L Anion Gap 11 MEQ/L Blood Urea Nitrogen 26 MG/DL Creatinine 1.31 MG/DL Estimat Glomerular Filtration 54 ML/MIN Rate Random Glucose 182 MG/DL Calcium Level 8.9 MG/DL Phosphorus Level 4.4 MG/DL Magnesium Level 2.1 MG/DL Total Bilirubin 0.8 MG/DL Aspartate Amino Transf 45 U/L (AST/SGOT) Alanine Aminotransferase 22 U/L (ALT/SGPT) Alkaline Phosphatase 76 U/L Total Protein 7.7 GM/DL Albumin 3.3 GM/DL Assessment and Plan Problem List: (1) Syncope (2) High degree atrioventricular block (3) Elevated troponin (4) Atrial flutter (5) Hip dislocation, right (6) Hyperkalemia (7) Wide-complex tachycardia Assessment and Plan 1) On presentation, syncope while driving Found with heart rate of 40, and either aflutter with 4:1 block vs. high degree AV block/AV disassociation Then in wide complex tachycardia which appears to be Aflutter with 2:1 block ? Hyperkalemia, now corrected 2) New LBBB (from 2005) Most likely cardioelectric deterioration Not a STEMI 3) Elevated troponin 4) Recent hospitalization at [facility] Found to have EF of 30%, diuresed, considered stress test but did not undergo Reviewed records, history of stent in LAD, last cath 2015 showing no significant disease 5) s/p cardiac catheterization POD #0 LAD s/p YVROSE (2.5x18) Discussed with his daughter and son 6) ASA/Plavix 7) Will discuss further with EP about further management with concern for syncope, possible AV disassociation, and cardiomyopathy Problem Qualifiers (1) Hip dislocation, right: Qualified Code: S73.004A - Hip dislocation, right, initial encounter Immanuel Alegre DO Nov 28, 2016 16:39
[2016-11-29] VITALS (47 sets, daily range): BP systolic 107–155; BP diastolic 59–90; PULSE 74–111; RESP 18–21; TEMP 97.4–98.7; O2SAT 90–100
[2016-11-29] MEDS: PIPERACIL-TAZO 3.375 GM PREMIX 50 ML IV SCH ×4 (01:11→22:24)
[2016-11-29] MEDS: PROPOFOL 1000 MG/100 ML INJ 100 ML IV SCH ×4 (01:11→21:27)
[2016-11-29] MEDS: CHLORHEXIDINE GLUCONATE 2 % 1 PACK (2 CLOTHS) TOP SCH ×2 (01:11→22:30)
[2016-11-29] MEDS: RESP: ALBUTEROL 2.5 MG/IPRATROPIUM 0.5 MG NEB (SCH) NEB ×4 (03:59→22:00)
[2016-11-29] MEDS: INSULIN ASPART SUPPLEMENTAL SCALE SQ SCH ×4 (04:30→22:30)
[2016-11-29] MEDS: fentaNYL DRIP 250 ML IV SCH (05:49)
[2016-11-29 06:17] LABS: AUTOMATED NEUTROPHIL # 7.1 TH/MM3 (1.8-7.7); BASOPHIL # 0.1 TH/MM3 (0-0.2); BASOPHIL % 0.5 % (0.0-2.0); EOSINOPHIL # 0.3 TH/MM3 (0-0.4); HEMO FLAGS DIFF FINAL; LYMPH % 21.7 % (9.0-44.0); LYMPHOCYTE # 2.3 TH/MM3 (1.0-4.8); MEAN CELL VOLUME 84.9 FL (80.0-100.0); MONO % 8.3 % (0.0-8.0); NEUT % 66.5 % (16.0-70.0); PLATELET COUNT 237 TH/MM3 (150-450); RED BLOOD COUNT 4.35 MIL/MM3 (4.50-5.90); RED CELL DISTRIBUTION WIDTH 14.3 % (11.6-17.2); WHITE BLOOD COUNT 10.7 TH/MM3 (4.0-11.0)
--- NOTE | 2016-11-29 06:18 | MA ---
cc: IMMANUEL HUSAIN DO DATE OF PROCEDURE November 28, 2016 PROCEDURE Left heart catheterization, coronary angiogram, IFR RCA, Resolute drug-eluting stent (2.5 x 18) to mid-LAD. PREPROCEDURE DIAGNOSES 1. Syncope. 2. NSTEMI. 3. AV dissociation on admission. POSTPROCEDURE DIAGNOSIS NSTEMI status post Resolute drug-eluting stent (2.50 x 18) to the mid-LAD. MEDICATIONS 1. Heparin 11,200 units. 2. Plavix 600 mg. CONTRAST USED 140 cc. FLUOROSCOPY 14.2 minutes. ESTIMATED BLOOD LOSS 50 cc. PROCEDURAL SUMMARY Jericho Lopez is a pleasant 71-year-old male who originally presented as syncope in trauma to [facility] Emergency Room. On arrival he was found to be an AV dissociation and then in atrial flutter. He was found to have an elevated troponin and an ejection fraction of 30%. Review of records from [facility] shows that he has had an ejection of 30% since his recent hospitalization there. Because of the elevated troponin it was felt that he needed to undergo coronary angiography as he does have a history of coronary artery disease with stenting. Since his arrival, he has been intubated and sedated and so consent was obtained from his daughter over a phone conversation. She understands the risks, benefits and alternatives and consented as such. He was brought to the lab and prepped in the usual sterile fashion. Because his right hip was dislocated during his trauma and he still grimaces with palpation of the right groin, it was felt that left groin access was more appropriate. The left femoral artery was accessed using a modified Seldinger technique and placement of a 5-Azeri sheath. This was easily aspirated and flushed. A JR-4 catheter was advanced over a J-wire to the ascending aorta and across the aortic valve for measurement of left ventricular pressure. This was pulled back across the aortic valve showing no significant gradient of aortic stenosis. JR-4 was unable to engage the right coronary artery and so this was exchanged out for a 3DRC catheter. 3DRC was used for angiography of the right coronary system but there was noticeable dampening upon engaging the right coronary artery. This was then exchanged out for a JL-4 which was used for selective angiography of the left coronary system. Please see below for further interventional notes. Postprocedure the femoral sheath was sewn into place with a plan for obtaining ACTs and removing once appropriate. The patient was given 600 mg of Plavix at the end of the case. 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 FINDINGS LEFT MAIN: Normal-sized vessel with adequate reflux. It bifurcates into an LAD and circumflex. LAD: Normal-sized vessel with a patent stent in the proximal portion with mild in-stent restenosis. Distal to this in the mid-LAD there is an 80% lesion which is felt to be the culprit lesion. LEFT CIRCUMFLEX: Normal-sized vessel with no significant disease throughout. It gives off three major obtuse marginals with no significant disease. RCA: Overall is a normal-sized vessel and there was noticeable dampening at the ostial portion concerning for disease. Otherwise it is a dominant vessel with no other noticeable disease. LVEDP 22. INTERVENTION Overall I felt that the LAD was the culprit lesion but there was concern for ostial RCA disease. Because of this, I felt that this needed to be further investigated. The patient was given additional heparin for an anticoagulant. A 3DRC guide was used to engage the right coronary and a [place] wire was advanced into the right coronary artery. The guide was then removed and the pressure sensor on the wire was pulled back into the aorta for normalization of pressures. After this, a volcano wire was advanced into the [id number] portion of the RCA. The guide catheter was once again removed from the ostium so as not to dampen. IFR was measured at 0.94 showing no significance. Tempe wire as well as the 3DRC guide were removed. An EBU 3.5 guide was then engaged into the left main. A BMW wire was advanced into the distal portion of the LAD. A compliant balloon (2.5 x 12) was used to predilate the lesion. A Resolute drug-eluting stent (2.5 x 18) was then placed over the lesion and inflated. A noncompliant balloon (2.5 x 12) was taken to the distal portion and inflated to 16 atmospheres. It was then pulled back to the proximal portion of the stent and taken to 22 atmospheres. The wire was then pulled back and post shots show a well-opposed stent with no dissections or perforations noted. The wire and EBU guide catheter were then removed. PCI DATA Vessel - mid-LAD Lesion length - 16. Pre-PARESH flow 3. Post-PARESH flow 3. Poststent residual 0% IMPRESSIONS 1. Syncope leading to trauma. 2. AV dissociation on arrival. 3. NSTEMI. 4. Coronary artery disease status post Resolute drug-eluting stent (2.5 x 18) to the mid-LAD. 5. Vent-dependent respiratory failure. RECOMMENDATIONS 1. Mr. Lopez presented with an NSTEMI and it is felt that the culprit lesion was the LAD which is status post a Resolute drug-eluting stent (2.5 x 18). He was loaded with Plavix with a plan for aspirin 81 mg and Plavix 75 mg daily. 2. He is currently on a ventilator and will be watched in the ICU. Critical Care will continue to follow for possible extubation in the near future. 3. Results of the case were discussed with the patient's son and daughter over the phone. 4. I did discuss the case with Dr. Condon, EP Cardiology, for consideration of ICD therapy. He presented with syncope with AV dissociation and has a known cardiomyopathy. Overall, I do not believe that his LAD lesion was the cause for his AV dissociation or a syncopal episode. This is further complicated because he had a high potassium, which resolved very quickly which possibly could have been due to homolysis. Dr. Condon will see the patient in the morning for further consideration. 5. At this time we will not place him on beta areli therapy due to AV dissociation on arrival. 6. At this time we will not place him on HOMER inhibitor therapy as he had an elevated creatinine and received 140 cc of dye. This can be further considered with stabilization of his creatinine. Thank you for allowing me to see Jericho Lopez. If there area any questions, please do not hesitate to call. Immanuel Husain DO VGP/SSB /9:59 PM /5:57 AM
[2016-11-29 06:41] LABS: BICARBONATE 25.9 MEQ/L (21.0-32.0); POTASSIUM 3.7 MEQ/L (3.5-5.1)
[2016-11-29] MEDS: CHLORHEXIDINE 0.12% (ORAL KIT) 15 ML CUP MT SCH ×2 (08:00→21:30)
[2016-11-29] MEDS: PANTOPRAZOLE SODIUM 40 MG VIAL IV SCH (08:45)
[2016-11-29] MEDS: ASPIRIN 81 MG CHEW TAB CHEW SCH (08:45)
[2016-11-29] MEDS: SODIUM CHLORIDE 0.9% FLUSH 10 ML FLUSH IV FLUSH SCH ×2 (08:45→21:00)
[2016-11-29] MEDS: CLOPIDOGREL 75 MG TAB PO SCH (08:45)
[2016-11-29] MEDS: SODIUM CHLOR 0.9% 1000 ML INJ 1,000 ML IV SCH ×2 (12:00→18:21)
--- NOTE | 2016-11-29 12:19 | PD.CARD.PN ---
Subjective Subjective Remarks No events overnight Awake on the vent, denies chest pain Objective Medications Current Medications Medications (Trade) Dose Ordered Sig/Devin Route Start Time Stop Time Status Last Admin (NS 1000 ml Inj) 1,000 ml @ 75 mls/hr [id number] IV 11/26/16 16:34 11/29/16 12:00 (NS Flush) 2 ml UNSCH PRN IV FLUSH 11/26/16 16:45 (NS Flush) 2 ml BID IV FLUSH 11/26/16 21:00 11/29/16 08:45 (Peridex 0.12% Liq) 15 ml BID@08,20 MT 11/26/16 20:00 11/29/16 08:00 (Protonix Inj) 40 mg DAILY IV 11/27/16 09:00 11/29/16 08:45 Miscellaneous Information 1 Q361D XX 11/26/16 16:45 11/26/16 16:45 (Chlorhexidine 2% Cloth) 3 pack Taper DAILY@04 TOP 11/27/16 04:00 11/23/17 03:59 11/29/16 01:11 Chlorhexidine Gluconate 3 pack 3 pack UNSCH PRN TOP 11/26/16 16:45 Propofol 100 ml @ 0 mls/hr TITRATE IV 11/26/16 16:45 11/29/16 12:01 Fentanyl Citrate 250 ml @ 0 mls/hr CONTINUOUS IV 11/26/16 17:15 11/29/16 05:49 (Zosyn 3.375 Gm Premix) 50 ml @ 100 mls/hr Q6H IV 11/26/16 20:00 11/29/16 08:00 (NovoLOG SUPPLEMENTAL SCALE) 1 Q6HR SQ 11/26/16 18:00 11/29/16 12:00 (D50w (Vial) Inj) 25 ml UNSCH PRN IV 11/26/16 18:00 (Glucagon Inj) 1 mg UNSCH PRN IM/SQ 11/26/16 18:00 (fentaNYL INJ) 100 mcg Q4HR PRN IV PUSH 11/26/16 18:00 (Aspirin Chew) 81 mg DAILY CHEW 11/27/16 09:00 11/29/16 08:45 (Lovenox Inj) 40 mg Q24H SQ 11/27/16 16:00 11/27/16 17:17 (Plavix) 75 mg DAILY PO 11/29/16 09:00 11/29/16 08:45 Vital Signs / I&O Vital Signs Date Time Temp Pulse Resp B/P Pulse Ox O2 Delivery O2 Flow Rate FiO2 11/29/16 11:38 97 40 11/29/16 11:15 96 11/29/16 11:00 97 11/29/16 10:45 97 11/29/16 10:41 97 11/29/16 10:00 107 11/29/16 10:00 107 18 96 11/29/16 08:50 100 40 11/29/16 08:50 40 11/29/16 08:39 111 19 149/90 97 11/29/16 08:39 111 11/29/16 08:00 93 11/29/16 08:00 40 11/29/16 08:00 93 18 98 11/29/16 06:00 83 11/29/16 04:01 100 Ventilator 11/29/16 04:00 97.8 75 18 110/67 100 11/29/16 04:00 75 11/29/16 04:00 97.8 75 18 110/67 100 11/29/16 04:00 40 11/29/16 03:55 100 40 11/29/16 03:00 74 18 114/65 100 11/29/16 03:00 74 18 114/65 100 11/29/16 02:00 75 18 109/61 100 11/29/16 02:00 75 18 109/61 100 11/29/16 02:00 75 11/29/16 01:00 76 18 107/59 100 11/29/16 01:00 76 18 107/59 100 11/29/16 00:00 98.7 78 18 112/65 100 11/29/16 00:00 78 11/29/16 00:00 98.7 78 18 112/65 100 11/29/16 00:00 40 11/28/16 23:57 79 18 114/66 100 11/28/16 23:57 79 18 114/66 100 11/28/16 23:48 100 Ventilator 11/28/16 23:45 100 40 11/28/16 23:00 74 18 100 11/28/16 23:00 74 18 100 11/28/16 22:30 75 18 104/61 100 8/2/17 22:30 75 18 104/61 100 217 22:00 76 18 103/60 100 11/28/16 22:00 76 17 22:00 76 18 103/60 100 17 21:00 76 18 99/57 100 17 21:00 76 18 99/57 100 17 20:30 78 18 101/59 100 17 20:30 78 18 101/59 100 17 20:19 99 Ventilator 11/28/16 20:14 100 40 11/28/16 20:00 99.1 80 18 98/59 100 11/28/16 20:00 80 11/28/16 20:00 40 11/28/16 20:00 99.1 80 18 98/59 100 11/28/16 19:47 82 7 97/58 100 11/28/16 19:47 82 7 97/58 100 11/28/16 19:45 83 6 96/58 100 11/28/16 19:45 83 6 96/58 100 11/28/16 19:42 84 9 104/58 99 11/28/16 19:42 84 9 104/58 99 11/28/16 19:39 85 15 101/58 100 11/28/16 19:39 85 15 101/58 100 11/28/16 19:36 84 14 106/63 100 11/28/16 19:36 84 14 106/63 100 11/28/16 19:33 87 19 117/66 99 11/28/16 19:33 87 19 117/66 99 11/28/16 19:30 87 16 111/59 99 11/28/16 19:30 87 16 111/59 99 11/28/16 19:27 86 18 112/64 100 11/28/16 19:27 86 18 112/64 100 11/28/16 19:24 85 15 106/66 100 11/28/16 19:24 85 15 106/66 100 17 19:21 86 15 118/64 100 217 19:21 86 15 118/64 100 2/17 19:18 87 20 116/67 100 17 19:18 87 20 116/67 100 17 19:15 87 18 112/66 100 8/2/ 19:15 87 18 112/66 100 82/17 19:12 85 17 109/63 100 17 19:12 85 17 109/63 100 17 19:09 87 15 110/69 100 82/17 19:09 87 15 110/69 100 17 19:06 87 19 113/67 100 17 19:06 87 19 113/67 100 11/28/16 19:04 88 18 115/65 100 11/28/16 19:04 88 18 115/65 100 11/28/16 19:00 86 8 100 11/28/16 19:00 86 8 100 11/28/16 18:00 97 11/28/16 18:00 97 11/28/16 18:00 97 8 100 11/28/16 17:00 101 18 97 11/28/16 17:00 101 18 97 11/28/16 16:54 97 40 11/28/16 16:08 113 21 164/81 11/28/16 16:08 113 21 164/81 17 16:08 113 11/28/16 16:08 113 11/28/16 16:08 113 21 164/81 17 16:08 113 21 164/81 17 16:08 113 21 164/81 17 16:07 112 19 155/80 11/28/16 16:07 112 19 155/80 17 16:07 112 11/28/16 16:07 112 11/28/16 16:07 112 19 155/80 11/28/16 16:07 112 19 155/80 17 16:07 112 19 155/80 11/28/16 16:00 110 11/28/16 16:00 110 11/28/16 16:00 110 17 11/28/16 16:00 110 17 11/28/16 16:00 110 17 11/28/16 16:00 110 17 11/28/16 16:00 110 17 11/28/16 16:00 100 11/28/16 15:55 100 100 11/28/16 13:35 100 100 I/O 11/28/11/28/17 11/28/11/29/11/29/16 11/29/16 07:00 15:00 23:00 07:00 15:00 23:00 Intake Total 1160 ml 1204 ml 468 ml 461 ml Output Total 200 ml 850 ml 310 ml 390 ml Balance 960 ml 354 ml 158 ml 71 ml Intake IV Total 1160 ml 1204 ml 468 ml 461 ml Output Urine Total 200 ml 850 ml 310 ml 390 ml # Bowel Movements 0 Physical Exam GENERAL: Awake on the vent SKIN: Warm and dry. HEAD: Atraumatic. Normocephalic. EYES: Pupils equal and round. No scleral icterus. No injection or drainage. ENT: No nasal bleeding or discharge. Mucous membranes pink and moist. NECK: Trachea midline. No JVD. CARDIOVASCULAR: Regular rate and rhythm. RESPIRATORY: No accessory muscle use. Decreased breath sounds bilaterally GASTROINTESTINAL: Abdomen soft, non-tender, nondistended. Hepatic and splenic margins not palpable. MUSCULOSKELETAL: Extremities without clubbing, cyanosis, or edema. No obvious deformities. NEUROLOGICAL: Awake on the vent on CPAP Laboratory Laboratory Tests Test 11/29/16 06:00 White Blood Count 10.7 TH/MM3 Red Blood Count 4.35 MIL/MM3 Hemoglobin 12.2 GM/DL Hematocrit 37.0 % Mean Corpuscular Volume 84.9 FL Mean Corpuscular Hemoglobin 28.0 PG Mean Corpuscular Hemoglobin 33.0 % Concent Red Cell Distribution Width 14.3 % Platelet Count 237 TH/MM3 Mean Platelet Volume 7.5 FL Neutrophils (%) (Auto) 66.5 % Lymphocytes (%) (Auto) 21.7 % Monocytes (%) (Auto) 8.3 % Eosinophils (%) (Auto) 3.0 % Basophils (%) (Auto) 0.5 % Neutrophils # (Auto) 7.1 TH/MM3 Lymphocytes # (Auto) 2.3 TH/MM3 Monocytes # (Auto) 0.9 TH/MM3 Eosinophils # (Auto) 0.3 TH/MM3 Basophils # (Auto) 0.1 TH/MM3 CBC Comment DIFF FINAL Differential Comment Sodium Level 137 MEQ/L Potassium Level 3.7 MEQ/L Chloride Level 101 MEQ/L Carbon Dioxide Level 25.9 MEQ/L Anion Gap 10 MEQ/L Blood Urea Nitrogen 18 MG/DL Creatinine 1.04 MG/DL Estimat Glomerular Filtration 70 ML/MIN Rate Random Glucose 144 MG/DL Calcium Level 8.3 MG/DL Assessment and Plan Problem List: (1) Syncope (2) High degree atrioventricular block (3) Elevated troponin (4) Atrial flutter (5) Hip dislocation, right (6) Hyperkalemia (7) Wide-complex tachycardia (8) AV dissociation Assessment and Plan 1) On presentation, syncope while driving Found with heart rate of 40, high degree AV block/AV dissociation Then in wide complex tachycardia which appears to be Aflutter with 2:1 block ? Hyperkalemia, now corrected... should have not correct so quickly, possible hemolysis 2) New LBBB (from 2005) Most likely cardioelectric deterioration Not a STEMI 3) Elevated troponin 4) Recent hospitalization at [facility] Found to have EF of 30%, diuresed, considered stress test but did not undergo Reviewed records, history of stent in LAD, last cath 2015 showing no significant disease 5) s/p cardiac catheterization POD #1 LAD s/p YVROSE (2.5x18) Discussed with his daughter and son 6) ASA/Plavix 7) Discussed with EP, will see patient and consider ICD 8) BB held due to original presentation of AV dissociation 9) Will further consider HOMER-I therapy 10) Discussed with EP and CC Problem Qualifiers (1) Hip dislocation, right: Qualified Code: S73.004A - Hip dislocation, right, initial encounter Immanuel Alegre DO Nov 29, 2016 12:19
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
[2016-11-29] MEDS: ENOXAPARIN SODIUM 40 MG/0.4 ML SYRINGE SQ SCH (18:57)
[2016-11-30] VITALS (28 sets, daily range): BP systolic 115–140; BP diastolic 60–79; PULSE 72–96; RESP 14–18; TEMP 97.3–98.5; O2SAT 95–100
[2016-11-30] MEDS: PROPOFOL 1000 MG/100 ML INJ 100 ML IV SCH ×4 (00:23→21:42)
[2016-11-30] MEDS: fentaNYL DRIP 250 ML IV SCH ×3 (02:38→21:42)
[2016-11-30] MEDS: PIPERACIL-TAZO 3.375 GM PREMIX 50 ML IV SCH ×4 (02:41→20:03)
[2016-11-30] MEDS: RESP: ALBUTEROL 2.5 MG/IPRATROPIUM 0.5 MG NEB (SCH) NEB ×4 (03:23→20:23)
--- NOTE | 2016-11-30 05:24 | RADRPT ---
EXAM DATE/TIME: 11/30/2016 03:57 [facility] COMPARISON: CHEST SINGLE AP, November 27, 2016, 3:24. INDICATIONS : Evaluate for respiratory failure. MEDICAL HISTORY : None. SURGICAL HISTORY : None. ENCOUNTER: Subsequent ACUITY: 4 - 6 days PAIN SCORE: Non-responsive. LOCATION: chest FINDINGS: The cardiac silhouette is enlarged in transverse diameter. Support lines and tubes are in satisfactor y position. There is left lower lobe atelectasis versus pneumonia. The right lung is free of acute pa renchymal opacity. CONCLUSION: 1. Cardiomegaly. Left lower lobe atelectasis versus pneumonia. There has been no significant change w hen compared to the prior exam. Moncho Gotti MD on November 30, 2016 at 5:22 Board Certified Radiologist. This report was verified electronically.
[2016-11-30] MEDS: INSULIN ASPART SUPPLEMENTAL SCALE SQ SCH ×3 (05:57→18:00)
[2016-11-30 06:18] LABS: BLOOD GAS CARBOXYHEMOGLOBIN 1.3 % (0-4); BLOOD GAS HCO3 23 mmol/L (22-26); BLOOD GAS METHEMOGLOBIN 0.7 % (0-2); BLOOD GAS O2 HGB SATURATION 87 % (90-100); BLOOD GAS OXYGEN CONTENT 20.2 Vol % (12.0-20.0); BLOOD GAS PCO2 44 mmHg (38-42); BLOOD GAS PO2 60 mmHg (61-120); BLOOD GAS TOTAL HGB 16.5 G/DL (12.0-16.0); TEMP CORR TO 98.6
[2016-11-30 06:19] LABS: CRITICAL VALUE YES; FIO2 40 %; OXYGEN DEVICE VENTILATOR; VENT SETTINGS VOLUME AC 18/550/+5
[2016-11-30 06:20] LABS: DRAW SITE LT RADIAL; NUMBER OF ARTERIAL PUNCTURES 1; STAT NO; ULNAR PULSE PRESENT
[2016-11-30 07:35] LABS: BICARBONATE 22.6 MEQ/L (21.0-32.0)
[2016-11-30 07:37] LABS: MAGNESIUM 2.1 MG/DL (1.5-2.5); POTASSIUM 4.2 MEQ/L (3.5-5.1)
[2016-11-30] MEDS: CHLORHEXIDINE 0.12% (ORAL KIT) 15 ML CUP MT SCH ×2 (08:00→20:00)
[2016-11-30] MEDS: ASPIRIN 81 MG CHEW TAB CHEW SCH (08:19)
[2016-11-30] MEDS: PANTOPRAZOLE SODIUM 40 MG VIAL IV SCH (08:19)
[2016-11-30] MEDS: CLOPIDOGREL 75 MG TAB PO SCH (08:19)
[2016-11-30] MEDS: SODIUM CHLORIDE 0.9% FLUSH 10 ML FLUSH IV FLUSH SCH ×2 (08:20→22:07)
[2016-11-30 08:32] LABS: HEMATOCRIT 35.4 % (39.0-51.0); MEAN CELL VOLUME 85.5 FL (80.0-100.0); MEAN CORPUSCULAR HEMOGLOBIN 28.3 PG (27.0-34.0); MEAN CORPUSCULAR HGB CONC 33.1 % (32.0-36.0); PLATELET COUNT 243 TH/MM3 (150-450); RED BLOOD COUNT 4.14 MIL/MM3 (4.50-5.90); RED CELL DISTRIBUTION WIDTH 14.7 % (11.6-17.2); REVIEW FLAG FINAL
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
[2016-11-30] MEDS: SODIUM CHLOR 0.9% 1000 ML INJ 1,000 ML IV SCH (12:27)
[2016-11-30] MEDS ORDERED: PROPOFOL 200 MG/20 ML AMP IV ONE (14:31)
[2016-11-30] MEDS ORDERED: VANCOMYCIN 500 MG VIAL ONE (14:41)
[2016-11-30] MEDS ORDERED: LIDOCAINE HCL 2% 50 ML VIAL ONE (14:42)
[2016-11-30] MEDS ORDERED: VANCOMYCIN HCL 1000 MG VIAL ONE (14:42)
[2016-11-30] MEDS ORDERED: ceFAZolin INJ 1,000 MG VIAL ONE (14:42)
[2016-11-30] MEDS ORDERED: POTASSIUM CHLOR 20 MEQ PREMIX 100 ML IV PRN ×2 (15:30)
[2016-11-30] MEDS ORDERED: POTASSIUM PHOSPHATE INJ 30 MMOL in SODIUM CHLOR 0.9% 250 ML INJ 250 ML IV PRN (15:30)
[2016-11-30] MEDS ORDERED: POTASSIUM CHLOR 40 MEQ PREMIX 100 ML IV PRN ×2 (15:30)
[2016-11-30] MEDS ORDERED: POTASSIUM PHOSPHATE MONOBASIC 500 MG TAB PO/TUBE PRN (15:30)
[2016-11-30] MEDS ORDERED: MAGNESIUM SULFATE INJ 4 GM in SODIUM CHLORIDE 0.9% INJ 92 ML IV PRN (15:30)
[2016-11-30] MEDS ORDERED: MAGNESIUM SULFATE INJ 2 GM in SODIUM CHLORIDE 0.9% INJ 96 ML IV PRN (15:30)
[2016-11-30] MEDS ORDERED: POTASSIUM PHOSPHATE MONOBASIC 500 MG TAB PO PRN (15:30)
[2016-11-30] MEDS ORDERED: POTASSIUM CHLORIDE 25 MEQ EFFERVESCENT TAB PO PRN (15:30)
[2016-11-30] MEDS ORDERED: MAGNESIUM OXIDE 400 MG TAB PO PRN (15:30)
--- NOTE | 2016-11-30 15:37 | PD.CARD ---
SINGLE CHAMBER DEFIB IMPLANT PROCEDURE DATE: Nov 30, 2016 NYHA Classification: Class II (Mild) Prevention: Primary Single Chamber Defib Implant PROCEDURE: Single chamber defibrillator implantation. INDICATIONS: Mr. Lopez is a 71 -year-old male with syncopal episode, AV block, tachyarrhythmia, possible ventricular tachycardia, with congestive heart failure , coronary artery disease, Dr Alegre stated he does not expect significant EF improvement postt PCI, who undergo defibrillator implantation for sudden prevention. The risks, the nature and the benefit of the procedure are clearly stated to him . Risks include pneumothorax, cardiac perforation, stroke and even . He understood and agreed to proceed. PROCEDURE: After written, informed consent was obtained, the patient was brought to the EP Lab where he was prepped and draped in the sterile fashion. Conscious sedation was initiated and maintained throughout the procedure by anesthesiologist. Once sedation was verified, the left infraclavicular area was anesthetized with 2% Xylocaine. Using modified Seldinger technique, the left subclavian vein was cannulated on one occasion and one guide wire was advanced. Then, using #11 blade scalpel, a 3-cm incision was made two fingerbreadths below left clavicle. This incision was then taken down to the deep fascial layer using Bovie cautery and blunt dissection. Into the inferomedial direction, a device pocket was dissected, then the wire was dissected into the pocket. A 2-0 Vicryl suture was placed around the wires to prevent bleeding. At this point, over the wire, the 9- Upper Sorbian dilator and introducer was advanced. As dilator and wire were removed, an active fixation right ventricular pacing, sensing and defibrillatory lead was advanced. After adequate pacing and sensing thresholds were obtained, the lead was secured in the pocket with #2 Ethibond suture. At that point, the pocket was copiously irrigated with antibiotic solution. The leads were connected to the generator and placed into the pocket. I did proceed with wound closure. The deep fascial layer was approximated with 2-0 Vicryl suture in a continuous fashion. The subcutaneous layer was approximated with 2-0 Vicryl suture in a continuous fashion. The subcuticular layer was approximated with 2-0 Vicryl suture in a continuous fashion. Dermabond adhesive was applied to the wound, followed by a sterile pressure dressing. There was no complication. The patient tolerated procedure. Blood loss minimal. 1. Implanted Hardware: The implanted defibrillator generator is a [employer]our[employer]oni[employer], model number 024737, serial number [id number]. The right ventricular pacing, sensing and defibrillatory lead is a [employer] model number 306223, serial number [id number]. 2. Thresholds: The right ventricular pacing threshold in the bipolar mode was 0.7 volts at 0.5 milliseconds, lead impedance 884 ohms and R-wave at 6.4 mV. Sensing P wave at4.6 mv. 3. Settings: The device set in VVI 40 defibrillatory portion for two zones, one zone for ventricular tachycardia between 160 and 250 beats per minute. Initial therapy consists of one burst of ATP, one ramp, 81%, 10 pulse, 10 millisecond decremental, followed by 20, then 30 and all subsequent shocks at 40 joules defibrillatory shock, the second zone for ventricular fibrillation above 250beats per minute, first therapy at 30 and all subsequent shocks at 40 joules defibrillatory shock. CONCLUSIONS: Successful defibrillator implantation. COMMENT AND RECOMMENDATIONS: The patient will be transferred to the telemetry unit, will be observed and when stable can be discharged home. Kristi Condon MD Nov 30, 2016 15:37
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
[2016-11-30] MEDS ORDERED: MAGNESIUM HYDROXIDE SUSP 30 ML CUP PO PRN (15:45)
[2016-11-30] MEDS ORDERED: BISACODYL 10 MG SUPP RECTAL PRN (15:45)
--- NOTE | 2016-11-30 15:51 | CATHPROC ---
[facility] HIS Report Study Information Study Number Admission Scheduled Start Study Start [id number] Nov 26 2016 4:29PM 11/30/2016 Nov 30 2016 2:03PM [place] Service Cardiac Pacer/ICD Admit Source Facility Department Emergency department [facility] Real Estate Asset Manager Physician and Clinical Staff Initial Kristi Armstrong Lehr Cutter Nery Gomez RN Other Anesthesia, CONCRETE INSPECTOR Recorder Oksana Manuel,RT(R) (BS) Scrub Amanda Root,RT(R) TECH2 Procedures Performed Procedure Lead Insertion Equipment Time Spinning Mule Tender Description Size Mfg Part Number Used/Scraped DEFIBRILLATOR, Agris[employer] BiosciencesIA 7 VR-T 15:14 BIOTRONIK [id number] Used DX MRI LEAD, LINOX SMART S DX 65/15 15:13 BIOTRONIK * [id number] Used (BULK) DERMABOND, ADHESIVE SKIN [id number] 14:36 CORDIS/PACER * Used GLUE MINI *[id number] TP-1103 14:36 MEDLINE IND[employer]RIES SUTURE, STRIP PLUS 1/2" * Used *[id number] 14:36 MEDLINE PACER CISNERSO, LIMB * 2530 *[id number] Used [id number] 14:36 [employer] PACER PACK, PACER CUSTOM * Used *[id number] 15:09 [employer] PACER SAFE SHEATH, FR8, 13CM FR 8 [id number] Used 14:56 Needle Sponge Count 2 22 Used 14:56 Needle Sponge Count 2 2 Used 14:56 Needle Sponge Count 20 200 Used SUTURE, 0 ETHIBOND [CT1] (CX21D), 8pk SUTURE, 2-0 VICRYL [CT1] ([id number]) SUTURE, 2-0 VICRYL [CT1] (CQL904M) [id number] 14:36 [facility] BLANKET,WARM AIR CCL * Used *[id number] [facility] PAD, ELECTROSURGICAL 14:36 * [id number] *[id number] Used SURGICAL GROUNDING ORANGE [id number] 14:36 [employer]. ELECTRODE, PRO-PADZ BIPHASIC * Used *[id number] Equipment Model, Serial, Lot Number and Expiration Data Description Model Number Serial Number Lot Number Expiration Date DEFIBRILLATOR, IMPERIA 7 VR-T [id number] 06-26-2017 DX MRI LEAD, LINOX SMART S DX 65/15 [id number] 12-27-2017 (BULK) History: Allergies Allergy Reaction No Known Allergies History: Risk Factors Family History of Hypertension Dyslipidemia Previous ND Previous Heart Failure Premature CAD Yes No No No Yes Prior Valve Prior PCI Prior PCIDate Prior CABG Surgery No Yes 11/28/2016 No Cerebrovascular Peripheral Artery Chronic Lung On Dialysis Diabetes Disease Disease Disease No No No No Yes History: Symptoms/Diagnosis Selection Items Syncope History: Stress Tests Stress or Imaging Studies Performed No History: Other Current Smoker No Medication Medication Total Dose (Bolus/Oral) Medication Total Dosage/Unit 2% XYLOCAINE 50 mL FENTANYL 2.5 mg/hr PROPOFOL 35.49 mcg/kg/min Medications (Bolus/Oral) Medication Time Given Dosage/Unit Administered By Reason PROPOFOL 11/30/2016 2:32:13 PM 35.49 mcg/kg/min Patient arrived on 35.49 mcg/kg/min PROPOFOL in Left Arm via Peripheral IV. Pump/Drip Flow = 26 ml/hr using D5W with a concentration of 1000 mg in 100 ml. FENTANYL 11/30/2016 2:32:21 PM 2.5 mg/hr Patient arrived on 2.5 mg/hr FENTANYL in Right Antecubital via Peripheral IV. Pump/Drip Flow = 25 ml/ hr using [Solution Name] [place] [address] mcg in 250 ml. 2% XYLOCAINE 11/30/2016 3:03:31 PM 50 mL Kristi Condon 50 mL 2% XYLOCAINE given in lab by Kristi Condon in left upper chest via Subcutaneous. Medication (Drip) Medication Time Given Dosage/Unit Concentration/Unit Diluent (ml) Solution ANCEF 11/30/2016 2:54:35 PM 2 g 2 g ANCEF given in lab by Anesthesia, CONCRETE INSPECTOR in Right Antecubital via Peripheral IV. VANCOMYCIN DRIP 11/30/2016 2:49:11 PM 1 g 1 g VANCOMYCIN DRIP given in lab by Anesthesia, CONCRETE INSPECTOR in Right Antecubital via Peripheral IV. Initial Case Assessment Cardiovascular NIBP 110/74 Edema Present Skin color Skin Moderate Normal Warm Dry Neurological State Oriented to time-place- person Respiration - General Respiration Rate SpO2 (%) (B/min) 19 100 Comment: PATIENT INTUBATED Chronological Log Time Study Chronological Log 14:31:32 Patient arrived via Bed. 14:31:33 Patient Name, D.O.B, / Armband Verified By R.N. 14:31:34 Consent signed by the physician and the patient and verified by the Real Estate Asset Manager staff. 14:31:45 Verbal Stimulation=0 Physical Stimulation=1 Airway=2 Respiration=1 TOTAL=4. (0=absent, 1=li mited, 2=present) 14:31:46 Anesthesia at bedside. Assumes care of patient. See flow sheet for vitals and meds. 14:32:03 Presedation assessment performed by Real Estate Asset Manager RN. 14:32:07 Patient has been NPO for More than 6Hrs. 14:32:09 Patient Warmer Placed on the Table. 14:32:10 Disposable Defibrillator Pads Placed On Patient. 14:32:12 A # 20 IV was noted in the Antecubital (left). Grade = 0 Patient arrived on 35.49 mcg/kg/min PROPOFOL in Left Arm via Peripheral IV. Pump/Drip Flow = 26 ml/hr using D5W 14:32:13 with a concentration of 1000 mg in 100 ml. 14:32:16 A # 20 IV was noted in the Antecubital (right). Grade = 0 Patient arrived on 2.5 mg/hr FENTANYL in Right Antecubital via Peripheral IV. Pump/Drip Flow = 25 ml/hr using 14:32:21 [Solution Name] [place] [address] mcg in 250 ml. 14:32:33 History and physical on the chart or being dictated. Assessment: Initial Case, DLDF=551/74 mmhg, Edema=Mod, Color=Normal, Skin = Warm, Dry 14:32:35 Neurological: Ox3 Respiration: Resp=19 B/min, NnL9=957 %, Comment=PATIENT INTUBATED 14:32:36 Table restraints applied according to hospital policy 14:37:03 Bovie ground pad applied to: abdomen 14:37:11 Indwelling Hicks catheter present upon patient's arrival. 14:47:32 Left Upper Chest Prepped Times Two. 14:47:39 Right Upper Chest Prepped Times Two. 14:49:11 1 g VANCOMYCIN DRIP given in lab by Anesthesia, CONCRETE INSPECTOR in Right Antecubital via Peripheral IV . 14:52:45 paged 14:54:35 2 g ANCEF given in lab by Anesthesia, CONCRETE INSPECTOR in Right Antecubital via Peripheral IV. First Sponge And Instrument Count Done by Amanda Root, RT(R) TECH2. 14:55:40 Hypo's: 2, Sponges: 20, Bovie/scratch: 2 Sutures: 10, Blades: 1, Instruments: 26, Syveck Patches: 0 Time Out. Correct patient, procedure, procedure equipment, site and side verified with physici an present. Time 15:03:15 concurred by MD, individual staff and CONCRETE INSPECTOR. Time Out #2 - Consents verified, patient in correct position, all results are labled and displ ayed, safety precautions 15:03:23 taken, antibiotics administered. Time out concurred by MD, individual staff and CONCRETE INSPECTOR in proced ure 15:03:29 Case Start 15:03:31 50 mL 2% XYLOCAINE given in lab by Kristi Condon in left upper chest via Subcutaneous. 15:06:08 Vascular access was obtained in the Subclav. Vein (Lft. 15:06:26 Wire inserted 15:06:33 A pocket was created at the L Upper Chest. 15:08:19 A SAFE SHEATH, FR8, 13CM FR 8 was advanced into the L Upper Chest using the Modified S eldinger technique. 15:08:52 A LEAD, LINOX SMART S DX 65/15 (BULK) * was inserted and positioned in the RV. 15:10:31 Lead placement verified under fluoroscopy 15:11:21 The RV lead impedance and threshold being tested. 15:13:05 Pocket flushed with antibiotic solution 15:13:17 A DEFIBRILLATOR, IMPERIA 7 VR-T DX MRI was connected and placed in the pocket. 15:20:10 The pocket was closed. Second Sponge And Instrument Count Done by Amanda Root, RT(R) TECH2. 15:21:10 Hypo's: 2, Sponges: 20, Bovie/scratch: 2 Sutures: 10, Blades: 1, Instruments: 16, Syveck Patches: 0 15:25:23 Implant Procedure was performed. 15:25:35 Bedside Report will be given. 15:25:38 Case End 15:25:42 Steri-strips and a sterile dressing applied to site. Final Sponge And Instrument Count Done by Amanda Root, RT(R) TECH2. 15:40:32 Hypo's: 2, Sponges: 20, Bovie/scratch: 2 Sutures: 10, Blades: 1, Instruments: 26, Syveck Patches: 0 15:40:47 A sling was placed on the affected arm. 15:49:00 No case complications noted. End Study - Contrast Media Used In Study Contrast Total Opened (mL) Total Used (mL) Total Wasted (mL) Unspecified 0 0 0 End Study - Radiation Exposure Fluoro Time (minutes) 1.9 End Study - Patient Disposition Complications Transferred To No Critical Care Bed
[2016-11-30] MEDS: ENOXAPARIN SODIUM 40 MG/0.4 ML SYRINGE SQ SCH (16:00)
--- NOTE | 2016-11-30 16:19 | MB ---
cc: BERYL PETTIT M.D. DATE OF CONSULTATION: 11/29/2016 REASON FOR CONSULTATION: Syncope. A-V block Heart failure. HISTORY OF PRESENT ILLNESS Mr. Lopez is a 69-year-old gentleman with history of congestive heart failure, cardiomyopathy, previous evaluation last June. The ejection fraction was around 20%. The gentleman was admitted to the emergency room due to syncopal episode. When [facility] arrived, his heart rate was in the 40's. Subsequently A-V block was observed. The patient also was on hyperkalemia. During hospitalization, episode of tachyarrhythmia was observed. He had a left heart catheterization by Dr. Alegre, PCI was performed. Patient currently on mechanical ventilation. I was consulted for evaluation for device insertion. The chart was reviewed. The patient was evaluated, most of the information was obtained from medical record and in talking to Dr. Alegre. ALLERGIES None. SOCIAL HISTORY: Social history was not obtainable. FAMILY HISTORY: Family history was noncontributory to his current medical condition. MEDICATIONS The gentleman is on 1. Vancomycin 2. Ancef 3. Plavix. 4. Lovenox. 5. Aspirin 6. Fentanyl 7. Propofol. REVIEW OF SYSTEMS Intubated on mechanical ventilation. Apparently the patient is under sedation holiday right now. PHYSICAL EXAMINATION: VITAL SIGNS: Blood pressure 138/80, pulse 86, respiratory rate maintained by ventilator CARDIOVASCULAR SYSTEM: S1-S2 regular. ABDOMEN: The abdomen is soft, no mass, no bruits obese. EXTREMITIES: No edema. RADIOLOGIC: Electrocardiogram sinus rhythm, intraventricular conduction delay, first-degree AV block, diffuse ST changes and right axis. LABORATORY DATA Hemoglobin 12.2, white blood cell 10.7, potassium 3.7, creatinine 1.04. ASSESSMENT AND RECOMMENDATIONS Mr. Lopez has congestive heart failure. He has ejection fraction of around 20%. Recent echo read by Dr. Pierce again on November 27 indicated ejection around 20/25%. He is on optimal medical treatment. He had a syncopal episode. He has AV block. Also the gentleman has episode of wide complex tachyarrhythmia. This possible ventricular tachycardia. He had PCI. Dr Alegre does not believe his EF will improve significantly. The gentleman also will need pacing support. His hyperkalemia corrected. But still having episodes of severe bradycardia. At that point, if a device is going to be implanted, the best approach is defibrillator implantation for sudden prevention and pacing support if necessary The risks, the nature and the benefit of the procedure are clearly stated to the daughter over the phone. The risks include pneumothorax, cardiac perforation, stroke and even . The patient and the family understood and agreed to proceed. I discussed the case. Dr. Alegre and as well as the critical care doctor. The procedure will be preformed during hospitalization. MD ALTON Mariscal/dean /3:24 PM /3:55 PM MTDAlec
[2016-11-30] MEDS: SENNOSIDES 8.6 MG TAB PO PRN (17:26)
[2016-11-30] MEDS: LACTULOSE SYRUP 20 GM/30 ML CUP PO PRN (17:26)
[2016-11-30] MEDS: SODIUM PHOSPHATE INJ 30 MMOL in SODIUM CHLOR 0.9% 250 ML INJ 240 ML IV PRN (18:32)
[2016-11-30] MEDS: DOCUSATE SODIUM 50 MG/SENNA 8.6 MG TAB PO SCH (21:41)
[2016-12-01] VITALS (21 sets, daily range): BP systolic 113–168; BP diastolic 67–97; PULSE 40–111; RESP 18–36; TEMP 98–98.4; O2SAT 89–100
[2016-12-01] MEDS: INSULIN ASPART SUPPLEMENTAL SCALE SQ SCH ×5 (00:28→23:37)
[2016-12-01] MEDS: PIPERACIL-TAZO 3.375 GM PREMIX 50 ML IV SCH ×4 (01:00→20:43)
[2016-12-01] MEDS: PROPOFOL 1000 MG/100 ML INJ 100 ML IV SCH ×2 (01:00→04:59)
[2016-12-01] MEDS: CHLORHEXIDINE GLUCONATE 2 % 1 PACK (2 CLOTHS) TOP SCH (04:00)
[2016-12-01] MEDS: SODIUM CHLOR 0.9% 1000 ML INJ 1,000 ML IV SCH ×2 (04:59→16:34)
[2016-12-01 05:35] LABS: HEMATOCRIT 37.5 % (39.0-51.0); MEAN CELL VOLUME 85.1 FL (80.0-100.0); MEAN CORPUSCULAR HEMOGLOBIN 28.4 PG (27.0-34.0); MEAN CORPUSCULAR HGB CONC 33.3 % (32.0-36.0); PLATELET COUNT 226 TH/MM3 (150-450); RED CELL DISTRIBUTION WIDTH 14.4 % (11.6-17.2); REVIEW FLAG FINAL; WHITE BLOOD COUNT 9.6 TH/MM3 (4.0-11.0)
[2016-12-01 05:49] LABS: BICARBONATE 21.7 MEQ/L (21.0-32.0); MAGNESIUM 2.2 MG/DL (1.5-2.5); POTASSIUM 4.4 MEQ/L (3.5-5.1)
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
[2016-12-01] MEDS: CHLORHEXIDINE 0.12% (ORAL KIT) 15 ML CUP MT SCH ×2 (08:00→20:00)
[2016-12-01] MEDS: SENNOSIDES 8.6 MG TAB PO PRN (08:34)
[2016-12-01] MEDS: FUROSEMIDE 20 MG/2 ML VIAL IV PUSH SCH (08:34)
[2016-12-01] MEDS: LACTULOSE SYRUP 20 GM/30 ML CUP PO PRN (08:34)
[2016-12-01] MEDS: DOCUSATE SODIUM 50 MG/SENNA 8.6 MG TAB PO SCH ×2 (08:34→20:42)
[2016-12-01] MEDS: CLOPIDOGREL 75 MG TAB PO SCH (08:34)
[2016-12-01] MEDS: ASPIRIN 81 MG CHEW TAB CHEW SCH (08:34)
[2016-12-01] MEDS: PANTOPRAZOLE SODIUM 40 MG VIAL IV SCH (08:35)
[2016-12-01] MEDS: SODIUM CHLORIDE 0.9% FLUSH 10 ML FLUSH IV FLUSH SCH ×2 (08:35→20:43)
--- NOTE | 2016-12-01 08:37 | RADRPT ---
EXAM DATE/TIME: 12/01/2016 08:07 [place] COMPARISON: CHEST SINGLE AP, November 30, 2016, 3:57. INDICATIONS : Bradycardia. MEDICAL HISTORY : None. SURGICAL HISTORY : None. ENCOUNTER: Subsequent ACUITY: 1 week PAIN SCORE: Non-responsive. LOCATION: Bilateral chest FINDINGS: Portable AP view of the chest demonstrates a normal-sized cardiac silhouette. Endotracheal tube remai ns high in the trachea near the thoracic inlet and nasogastric tube courses beyond the GE junction. L eft chest wall cardiac pacing device is present. Lungs are underinflated with stable bibasilar airspa ce opacity. No pneumothorax or pleural effusion is identified. Bones and soft tissues demonstrate no acute finding. Innumerable clips overlie the right axilla. Cervical spine hardware is present. CONCLUSION: Stable chest x-ray with underinflation and bibasilar airspace opacity representing either atelectasis or airspace consolidation. Johnny Milan MD on December 01, 2016 at 8:34 Board Certified Radiologist. This report was verified electronically.
[2016-12-01 09:36] LABS: BLOOD GAS CARBOXYHEMOGLOBIN 1.5 % (0-4); BLOOD GAS HCO3 23 mmol/L (22-26); BLOOD GAS O2 HGB SATURATION 95 % (90-100); BLOOD GAS OXYGEN CONTENT 16.1 Vol % (12.0-20.0); BLOOD GAS PCO2 42 mmHg (38-42); BLOOD GAS PO2 97 mmHg (61-120); TEMP CORR TO 98.6
[2016-12-01 09:37] LABS: CRITICAL VALUE NO; DRAW SITE RT BRACHIAL; FIO2 40 %; NUMBER OF ARTERIAL PUNCTURES 1; OXYGEN DEVICE VENTILATOR; STAT NO; VENT SETTINGS CPAP 5/8PS
[2016-12-01] MEDS: RESP: ALBUTEROL 2.5 MG/IPRATROPIUM 0.5 MG NEB (PRN) INH ×3 (11:51→20:18)
[2016-12-01] MEDS: NYSTATIN 100,000 U/GM PWD 15 GM BTL TOPICAL SCH ×2 (11:56→20:44)
[2016-12-01] MEDS: ACETAMINOPHEN 1000 MG/100 ML VIAL IV SCH ×3 (11:56→23:37)
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
[2016-12-01] MEDS ORDERED: HYDROmorphone HCL PF 1 MG/ML VIAL IV PUSH ONE (13:15)
[2016-12-01] MEDS ORDERED: METOPROLOL TARTRATE 25 MG TAB PO SCH (13:15)
[2016-12-01 13:32] LABS: CALCIUM-PROTEIN CORRECTED 7.8 MG/DL (8.5-10.1)
--- NOTE | 2016-12-01 13:51 | EKG ---
Date Performed: 12/01/2016 Time Performed: 08:11:08 PTAGE: 71 years EKG: A-V dissociation. Left axis deviation RBBB with left anterior fascicular block Inferior inf arct - age undetermined Lateral ST-T changes may be due to myocardial ischemia Compared to previous t racing, the patient is now in a complete heart block, clinical correlation recommended. Abnormal ECG PREVIOUS TRACING : 11/26/2016 18.22 DOCTOR: Chas Graves Interpretating Date/Time 12/01/2016 13:50:28
[2016-12-01] MEDS ORDERED: PILL SPLITTER OTHER PRN (14:15)
[2016-12-01] MEDS: ENOXAPARIN SODIUM 40 MG/0.4 ML SYRINGE SQ SCH (16:49)
[2016-12-01] MEDS: METOPROLOL TARTRATE 25 MG TAB PO SCH (20:42)
[2016-12-01] MEDS: HYDROmorphone HCL PF 1 MG/ML VIAL IV PUSH PRN (20:47)
[2016-12-01] MEDS: MELATONIN 5 MG TAB PO PRN (20:53)
[2016-12-02] VITALS (18 sets, daily range): BP systolic 117–144; BP diastolic 65–103; PULSE 84–116; RESP 21–30; TEMP 98.4–98.6; O2SAT 89–99
[2016-12-02] MEDS: PIPERACIL-TAZO 3.375 GM PREMIX 50 ML IV SCH ×4 (02:14→20:40)
[2016-12-02] MEDS: HYDROmorphone HCL PF 1 MG/ML VIAL IV PUSH PRN ×4 (02:15→14:01)
[2016-12-02] MEDS: SODIUM CHLOR 0.9% 1000 ML INJ 1,000 ML IV SCH (03:48)
[2016-12-02] MEDS: CHLORHEXIDINE GLUCONATE 2 % 1 PACK (2 CLOTHS) TOP SCH (03:48)
[2016-12-02] MEDS: ACETAMINOPHEN 1000 MG/100 ML VIAL IV SCH (05:09)
[2016-12-02] MEDS: INSULIN ASPART SUPPLEMENTAL SCALE SQ SCH ×3 (05:15→16:50)
[2016-12-02 07:07] LABS: HEMATOCRIT 34.3 % (39.0-51.0); MEAN CELL VOLUME 85.9 FL (80.0-100.0); MEAN CORPUSCULAR HEMOGLOBIN 28.1 PG (27.0-34.0); MEAN CORPUSCULAR HGB CONC 32.7 % (32.0-36.0); PLATELET COUNT 240 TH/MM3 (150-450); RED BLOOD COUNT 3.99 MIL/MM3 (4.50-5.90); RED CELL DISTRIBUTION WIDTH 14.3 % (11.6-17.2); REVIEW FLAG FINAL; WHITE BLOOD COUNT 11.5 TH/MM3 (4.0-11.0)
[2016-12-02 07:25] LABS: BICARBONATE 22.4 MEQ/L (21.0-32.0); MAGNESIUM 2.1 MG/DL (1.5-2.5); POTASSIUM 3.9 MEQ/L (3.5-5.1)
[2016-12-02] MEDS: RESP: ALBUTEROL 2.5 MG/IPRATROPIUM 0.5 MG NEB (PRN) INH ×3 (07:52→20:58)
[2016-12-02] MEDS: CHLORHEXIDINE 0.12% (ORAL KIT) 15 ML CUP MT SCH ×2 (08:00→20:00)
[2016-12-02] MEDS: METOPROLOL TARTRATE 25 MG TAB PO SCH ×2 (08:02→20:39)
[2016-12-02] MEDS: DOCUSATE SODIUM 50 MG/SENNA 8.6 MG TAB PO SCH ×2 (08:02→20:39)
[2016-12-02] MEDS: ASPIRIN 81 MG CHEW TAB CHEW SCH (08:02)
[2016-12-02] MEDS: CLOPIDOGREL 75 MG TAB PO SCH (08:02)
[2016-12-02] MEDS: PANTOPRAZOLE SODIUM 40 MG VIAL IV SCH (08:02)
[2016-12-02] MEDS: SODIUM CHLORIDE 0.9% FLUSH 10 ML FLUSH IV FLUSH SCH ×2 (08:03→20:40)
[2016-12-02] MEDS: FUROSEMIDE 20 MG/2 ML VIAL IV PUSH SCH (08:03)
[2016-12-02] MEDS: NYSTATIN 100,000 U/GM PWD 15 GM BTL TOPICAL SCH ×2 (08:04→20:40)
[2016-12-02] MEDS: SODIUM PHOSPHATE INJ 30 MMOL in SODIUM CHLOR 0.9% 250 ML INJ 240 ML IV PRN (11:08)
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
[2016-12-02] MEDS: ENOXAPARIN SODIUM 40 MG/0.4 ML SYRINGE SQ SCH (16:29)
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
[2016-12-02] MEDS: oxyCODONE/ACETAMINOPHEN 10 MG/325 MG TAB PO PRN (16:51)
[2016-12-02] MEDS: MELATONIN 5 MG TAB PO PRN ×2 (20:39→23:40)
[2016-12-03] VITALS (11 sets, daily range): BP systolic 119–146; BP diastolic 67–92; PULSE 60–108; RESP 7–31; TEMP 97.8–98.7; O2SAT 87–99
[2016-12-03] MEDS: PIPERACIL-TAZO 3.375 GM PREMIX 50 ML IV SCH ×4 (01:04→21:09)
[2016-12-03] MEDS ORDERED: MELATONIN 5 MG TAB PO SCH (02:00)
[2016-12-03] MEDS: CHLORHEXIDINE GLUCONATE 2 % 1 PACK (2 CLOTHS) TOP SCH (04:00)
[2016-12-03] MEDS: INSULIN ASPART SUPPLEMENTAL SCALE SQ SCH ×5 (04:55→23:50)
[2016-12-03] MEDS: oxyCODONE/ACETAMINOPHEN 10 MG/325 MG TAB PO PRN ×2 (06:37→23:54)
[2016-12-03 07:16] LABS: MAGNESIUM 2.1 MG/DL (1.5-2.5); POTASSIUM 3.5 MEQ/L (3.5-5.1)
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
[2016-12-03] MEDS: CHLORHEXIDINE 0.12% (ORAL KIT) 15 ML CUP MT SCH ×2 (08:00→20:00)
[2016-12-03] MEDS: DOCUSATE SODIUM 50 MG/SENNA 8.6 MG TAB PO SCH ×2 (08:31→21:10)
[2016-12-03] MEDS: CLOPIDOGREL 75 MG TAB PO SCH (08:32)
[2016-12-03] MEDS: NYSTATIN 100,000 U/GM PWD 15 GM BTL TOPICAL SCH ×2 (08:32→21:00)
[2016-12-03] MEDS: ASPIRIN 81 MG CHEW TAB CHEW SCH (08:32)
[2016-12-03] MEDS: METOPROLOL TARTRATE 25 MG TAB PO SCH ×2 (08:32→21:00)
[2016-12-03] MEDS: SODIUM CHLORIDE 0.9% FLUSH 10 ML FLUSH IV FLUSH SCH ×2 (08:33→21:19)
[2016-12-03] MEDS: PANTOPRAZOLE SODIUM 40 MG VIAL IV SCH (08:33)
[2016-12-03] MEDS: FUROSEMIDE 20 MG/2 ML VIAL IV PUSH SCH (08:33)
[2016-12-03] MEDS: HYDROmorphone HCL PF 1 MG/ML VIAL IV PUSH PRN ×3 (11:10→21:10)
[2016-12-03] MEDS: ENOXAPARIN SODIUM 40 MG/0.4 ML SYRINGE SQ SCH (15:00)
[2016-12-03] MEDS: SODIUM CHLOR 0.9% 1000 ML INJ 1,000 ML IV SCH ×2 (19:14→21:10)
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
[2016-12-04] VITALS (9 sets, daily range): BP systolic 127–178; BP diastolic 87–104; PULSE 95–117; RESP 17–20; TEMP 96.7–98.2; O2SAT 91–98
[2016-12-04] MEDS: PIPERACIL-TAZO 3.375 GM PREMIX 50 ML IV SCH ×4 (02:53→21:03)
[2016-12-04] MEDS: CHLORHEXIDINE GLUCONATE 2 % 1 PACK (2 CLOTHS) TOP SCH (02:54)
[2016-12-04] MEDS: INSULIN ASPART SUPPLEMENTAL SCALE SQ SCH ×4 (05:33→23:58)
[2016-12-04] MEDS: HYDROmorphone HCL PF 1 MG/ML VIAL IV PUSH PRN ×5 (05:42→23:41)
[2016-12-04] MEDS: CHLORHEXIDINE 0.12% (ORAL KIT) 15 ML CUP MT SCH ×2 (08:00→20:00)
[2016-12-04] MEDS: oxyCODONE/ACETAMINOPHEN 10 MG/325 MG TAB PO PRN (08:10)
[2016-12-04] MEDS: DOCUSATE SODIUM 50 MG/SENNA 8.6 MG TAB PO SCH ×2 (08:11→21:00)
[2016-12-04] MEDS: FUROSEMIDE 20 MG/2 ML VIAL IV PUSH SCH (08:11)
[2016-12-04] MEDS: CLOPIDOGREL 75 MG TAB PO SCH (08:11)
[2016-12-04] MEDS: PANTOPRAZOLE SODIUM 40 MG VIAL IV SCH (08:11)
[2016-12-04] MEDS: METOPROLOL TARTRATE 25 MG TAB PO SCH ×2 (08:12→21:11)
[2016-12-04] MEDS: ASPIRIN 81 MG CHEW TAB CHEW SCH (08:12)
[2016-12-04] MEDS: NYSTATIN 100,000 U/GM PWD 15 GM BTL TOPICAL SCH ×2 (08:13→21:00)
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
[2016-12-04] MEDS: SODIUM CHLORIDE 0.9% FLUSH 10 ML FLUSH IV FLUSH SCH ×2 (09:00→21:00)
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
[2016-12-04] MEDS: LISINOPRIL 5 MG TAB PO SCH (14:05)
[2016-12-04] MEDS ORDERED: IPRASOL INH (14:34)
[2016-12-04] MEDS ORDERED: ASPI81CH25 CHEW (14:34)
[2016-12-04] MEDS ORDERED: PLAV75TA29 PO (14:34)
[2016-12-04] MEDS ORDERED: NOVOLOGSS SQ (14:34)
[2016-12-04] MEDS ORDERED: LISI-519 PO (14:34)
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
[2016-12-04] MEDS: SODIUM CHLOR 0.9% 1000 ML INJ 1,000 ML IV SCH (16:34)
[2016-12-04] MEDS: ENOXAPARIN SODIUM 40 MG/0.4 ML SYRINGE SQ SCH (16:43)
--- NOTE | 2016-12-04 19:25 | HHI.PR ---
Subjective Remarks 71 YOWM with Syncope, hip dislocation Had AICD placed On 02 Two LNC Breathing better Up in chair Objective Vital Signs Vital Signs Date Time Temp Pulse Resp B/P Pulse Ox O2 Delivery O2 Flow Rate FiO2 12/04/16 16:00 97.4 107 20 140/90 96 12/04/16 14:30 18 12/04/16 12:00 97.5 97 20 143/90 98 12/04/16 09:10 18 12/04/16 08:30 97 12/04/16 08:00 98.2 95 18 154/88 96 12/04/16 07:31 97 Nasal Cannula 3.00 12/04/16 04:00 96.7 117 19 178/104 94 12/04/16 00:00 97.6 110 19 127/96 91 12/03/16 22:00 60 12/03/16 20:00 97.8 97 20 137/78 97 I/O 12/03/16 12/03/16 12/03/16 12/04/16 12/04/16 12/04/16 07:00 15:00 23:00 07:00 15:00 23:00 Intake Total 470 ml 459 ml 120 ml 60 ml 480 ml Output Total 250 ml 1350 ml 0 ml 1000 ml 1450 ml Balance 220 ml -891 ml 120 ml -940 ml -970 ml Intake Oral 200 ml 200 ml 120 ml 60 ml 480 ml IV Total 270 ml 259 ml Output Urine Total 250 ml 1350 ml 0 ml 1000 ml 1450 ml Stool Total 0 ml 0 ml Bladder Scan Volume Amount 600 ml # Voids 0 # Bowel Movements 0 0 1 Result Diagram: 12/02/16 0659 12/03/16 0535 Objective Remarks GENERAL: WBWN WM, NAD SKIN: Warm and dry. HEAD: Normocephalic. EYES: No scleral icterus. No injection or drainage. NECK: Supple, trachea midline. No JVD or lymphadenopathy. CARDIOVASCULAR: Regular rate and rhythm without murmurs, gallops, or rubs. RESPIRATORY: Breath sounds equal bilaterally. No accessory muscle use. GASTROINTESTINAL: Abdomen soft, non-tender, nondistended. MUSCULOSKELETAL: No cyanosis, or edema. BACK: Nontender without obvious deformity. No CVA tenderness. A/P Assessment and Plan COPD Syncope S/P AICD placement S/P Hip dislocation CAD PLAN: Supplement 02 Aerosol nebs Cont Abx SQ Lovenox DC plans for Anuel Barajas MD Dec 04, 2016 19:25
[2016-12-04] MEDS: MELATONIN 5 MG TAB PO PRN (21:12)
--- NOTE | 2016-12-04 23:47 | HHI.PR ---
Subjective Remarks Patient seen this morning around 11 AM. Says she is feeling all right. Reports hip pain under control. Denies any chest pain or shortness of breath. Feels like leaving hospital Objective Vital Signs Date Time Temp Pulse Resp B/P Pulse Ox O2 Delivery O2 Flow Rate FiO2 12/04/16 20:00 98.1 104 17 135/87 95 12/04/16 16:00 97.4 107 20 140/90 96 12/04/16 14:30 18 12/04/16 12:00 97.5 97 20 143/90 98 12/04/16 09:10 18 12/04/16 08:30 97 12/04/16 08:00 98.2 95 18 154/88 96 12/04/16 07:31 97 Nasal Cannula 3.00 12/04/16 04:00 96.7 117 19 178/104 94 12/04/16 00:00 97.6 110 19 127/96 91 I/O 12/03/16 12/03/16 12/03/16 12/04/16 12/04/16 12/04/16 07:00 15:00 23:00 07:00 15:00 23:00 Intake Total 470 ml 459 ml 120 ml 60 ml 480 ml 989 ml Output Total 250 ml 1350 ml 0 ml 1000 ml 1450 ml 600 ml Balance 220 ml -891 ml 120 ml -940 ml -970 ml 389 ml Intake Oral 200 ml 200 ml 120 ml 60 ml 480 ml 240 ml IV Total 270 ml 259 ml 749 ml Output Urine Total 250 ml 1350 ml 0 ml 1000 ml 1450 ml 600 ml Stool Total 0 ml 0 ml Bladder Scan Volume Amount 600 ml # Voids 0 # Bowel Movements 0 0 1 1 Result Diagram: 12/02/16 0659 12/03/16 0535 Imaging Last Impressions Chest X-Ray 12/01/16 0000 Signed Impressions: Service Date/Time: Thursday, December 01, 2016 08:07 - CONCLUSION: Stable chest x-ray with underinflation and bibasilar airspace opacity representing either atelectasis or airspace consolidation. Johnny Milan MD Pelvis X-Ray 11/26/16 1344 Signed Impressions: Service Date/Time: Saturday, November 26, 2016 13:36 - CONCLUSION: 1. Right hip arthroplasty dislocation. Sandro Barreto MD Head CT 11/26/16 1344 Signed Impressions: Service Date/Time: Saturday, November 26, 2016 15:02 - CONCLUSION: Unremarkable study. Mary Sánchez MD Chest CT 11/26/16 1344 Signed Impressions: Service Date/Time: Saturday, November 26, 2016 15:04 - CONCLUSION: Bilateral lower lobe airspace process could be traumatic contusions and/or pneumonia. Mary Sánchez MD Cervical Spine CT 11/26/16 1344 Signed Impressions: Service Date/Time: Saturday, November 26, 2016 15:03 - CONCLUSION: Bilateral neural foramina compromise C6-7. Mary Sánchez MD Abdomen/Pelvis CT 11/26/16 1344 Signed Impressions: Service Date/Time: Saturday, November 26, 2016 15:04 - CONCLUSION: 1. Right proximal ureteral stone, bilateral renal stones and postsurgical changes in right inguinal region. 2. Probable benign subcutaneous nodule right anterior abdominal wall without acute process. Mary Sánchez MD Shoulder X-Ray 11/26/16 0000 Signed Impressions: Service Date/Time: Saturday, November 26, 2016 13:36 - CONCLUSION: 1. No gross fracture or dislocation. 2. Degenerative changes, as above. Sandro Barreto MD Hip X-Ray 11/26/16 0000 Signed Impressions: Service Date/Time: Saturday, November 26, 2016 17:19 - CONCLUSION: Intact total hip prosthesis for technique. Mary Sánchez MD Ankle X-Ray 11/26/16 0000 Signed Impressions: Service Date/Time: Saturday, November 26, 2016 17:26 - CONCLUSION: Soft tissue swelling and no definite fracture for technique. Mary Sánchez MD Objective Remarks GENERAL: sitting up in chair at bedside. appears comfortable SKIN: Warm and dry. HEAD: Normocephalic. EYES: No scleral icterus. No injection or drainage. NECK: Supple, trachea midline. No JVD. CARDIOVASCULAR: Regular rate and rhythm without murmurs, gallops, or rubs. RESPIRATORY: Breath sounds equal bilaterally. No accessory muscle use. GASTROINTESTINAL: Abdomen soft, non-tender, nondistended. MUSCULOSKELETAL: No cyanosis, or edema. BACK: Nontender without obvious deformity. No CVA tenderness. A/P Assessment and Plan 12/04/16 Discussed with case management. Patient appears appropriate for inpatient rehabilitation. Occupational therapy evaluation ordered. Discussed with cardiology. s/p AICD. Clear for discharge on Plavix, aspirin, metoprolol, lisinopril, Lasix. -Status post antibiotics for pneumonia. Middle age male brought as trauma alert following probable syncopal episode secondary to bradycardia: //Dislocated right hip S/P closed reduction -Status post right hip prosthesis dislocation which was reduced in the ER. Further recommendations per orthopedics. Hip Immobilizer are noted -Day to work with physical therapy appreciated assistance. //Hyperkalemia (resolved) //Pulmonary contusion versus pneumonia. received abx and nebs as per pulmonary. //Acute respiratory failure requiring mechanical ventilation //Recent episode of sepsis due to diabetic foot infection(left) -Bilateral airspace consolidation on imaging. Status post antibiotics. Appreciate pulmonology assistance. //Diabetes mellitus. Diabetic diet ordered. Insulin sliding scale. //Non-ST elevation [place] -Appreciate cardiology assistance. //Heart block versus a flutter with 4:1 block which is now resolved //Hypertension //CHF //Cardiomyopathy //S/P AICD placement. Appreciate cardiology assistance. Continue beta areli , HOMER inhibitor, Plavix, aspirin. -A flutter with 4:1 block versus third-degree AV block Hyperkalemia treated in the ER. Repeat potassium actually came back within normal limits elevated troponin noted. Discussed with Dr. Alegre, pt S/P cardiac catheterization stent to LAD. Continue aspirin 81 mg daily. cont Lasix for diuresis if he remains hemodynamically stable. LVEF 20-25% which is new compared to his previous echo as per discussion with Dr. Alegre. AICD placement 11/30-[employer] Model [id number] right ventricular pacing, sensing and defibrillator. VVI-V. tach sensing 160-250bpm, V. fib > 250 BPM //prophy. Lovenox. Discharge Planning dc to inpatient rehabilitation. Kirt Razo MD Dec 04, 2016 23:47
[2016-12-05] VITALS (8 sets, daily range): BP systolic 112–154; BP diastolic 73–94; PULSE 78–116; RESP 17–22; TEMP 96.3–98.4; O2SAT 93–99
[2016-12-05] MEDS: CHLORHEXIDINE GLUCONATE 2 % 1 PACK (2 CLOTHS) TOP SCH (04:00)
[2016-12-05] MEDS: PIPERACIL-TAZO 3.375 GM PREMIX 50 ML IV SCH ×4 (04:21→19:49)
[2016-12-05] MEDS: INSULIN ASPART SUPPLEMENTAL SCALE SQ SCH ×4 (05:07→23:59)
[2016-12-05] MEDS: SODIUM CHLOR 0.9% 1000 ML INJ 1,000 ML IV SCH ×2 (05:07→16:36)
[2016-12-05] MEDS: CHLORHEXIDINE 0.12% (ORAL KIT) 15 ML CUP MT SCH ×2 (08:00→20:00)
[2016-12-05] MEDS: oxyCODONE/ACETAMINOPHEN 10 MG/325 MG TAB PO PRN ×2 (08:16→19:50)
[2016-12-05] MEDS: FUROSEMIDE 20 MG/2 ML VIAL IV PUSH SCH (08:16)
[2016-12-05] MEDS: PANTOPRAZOLE SODIUM 40 MG VIAL IV SCH (08:16)
[2016-12-05] MEDS: ASPIRIN 81 MG CHEW TAB CHEW SCH (08:17)
[2016-12-05] MEDS: LISINOPRIL 5 MG TAB PO SCH (08:17)
[2016-12-05] MEDS: CLOPIDOGREL 75 MG TAB PO SCH (08:17)
[2016-12-05] MEDS: DOCUSATE SODIUM 50 MG/SENNA 8.6 MG TAB PO SCH ×2 (08:17→19:49)
[2016-12-05] MEDS: METOPROLOL TARTRATE 25 MG TAB PO SCH ×2 (08:18→19:50)
[2016-12-05] MEDS: SODIUM CHLORIDE 0.9% FLUSH 10 ML FLUSH IV FLUSH SCH ×2 (08:24→19:52)
[2016-12-05] MEDS: NYSTATIN 100,000 U/GM PWD 15 GM BTL TOPICAL SCH ×2 (08:25→19:52)
[2016-12-05] MEDS: HYDROmorphone HCL PF 1 MG/ML VIAL IV PUSH PRN (14:11)
[2016-12-05] MEDS ORDERED: METO25TA3 PO (14:43)
--- NOTE | 2016-12-05 15:21 | HHI.PR ---
Subjective Remarks Patient seen this morning around 10:30 AM. Denies any chest pain. He does report fatigue with activity, however denies any shortness of breath without activity. Positive bowel movement. Objective Vital Signs Date Time Temp Pulse Resp B/P Pulse Ox O2 Delivery O2 Flow Rate FiO2 12/05/16 12:00 96.5 85 18 152/79 97 12/05/16 09:16 18 12/05/16 08:20 116 12/05/16 08:00 96.3 108 19 154/80 93 12/05/16 04:00 97.7 94 22 140/94 97 12/05/16 00:00 98.4 99 22 112/73 96 12/04/16 20:32 107 12/04/16 20:00 98.1 104 17 135/87 95 12/04/16 16:00 97.4 107 20 140/90 96 I/O 12/04/16 12/04/16 12/04/16 12/05/16 12/05/16 12/05/16 07:00 15:00 23:00 07:00 15:00 23:00 Intake Total 60 ml 480 ml 989 ml 308 ml Output Total 1000 ml 1450 ml 600 ml Balance -940 ml -970 ml 389 ml 308 ml Intake Oral 60 ml 480 ml 240 ml IV Total 749 ml 308 ml Output Urine Total 1000 ml 1450 ml 600 ml Bladder Scan Volume Amount 600 ml # Voids 0 # Bowel Movements 0 1 1 Result Diagram: 12/02/16 0659 12/03/16 0535 Imaging Last Impressions Chest X-Ray 12/01/16 0000 Signed Impressions: Service Date/Time: Thursday, December 01, 2016 08:07 - CONCLUSION: Stable chest x-ray with underinflation and bibasilar airspace opacity representing either atelectasis or airspace consolidation. Johnny Milan MD Pelvis X-Ray 11/26/16 1344 Signed Impressions: Service Date/Time: Saturday, November 26, 2016 13:36 - CONCLUSION: 1. Right hip arthroplasty dislocation. Sandro Barreto MD Head CT 11/26/16 1344 Signed Impressions: Service Date/Time: Saturday, November 26, 2016 15:02 - CONCLUSION: Unremarkable study. K. Judah Sánchez MD Chest CT 11/26/16 1344 Signed Impressions: Service Date/Time: Saturday, November 26, 2016 15:04 - CONCLUSION: Bilateral lower lobe airspace process could be traumatic contusions and/or pneumonia. Mary Sánchez MD Cervical Spine CT 11/26/16 1344 Signed Impressions: Service Date/Time: Saturday, November 26, 2016 15:03 - CONCLUSION: Bilateral neural foramina compromise C6-7. Mary Sánchez MD Abdomen/Pelvis CT 11/26/16 1344 Signed Impressions: Service Date/Time: Saturday, November 26, 2016 15:04 - CONCLUSION: 1. Right proximal ureteral stone, bilateral renal stones and postsurgical changes in right inguinal region. 2. Probable benign subcutaneous nodule right anterior abdominal wall without acute process. Mary Sánchez MD Shoulder X-Ray 11/26/16 0000 Signed Impressions: Service Date/Time: Saturday, November 26, 2016 13:36 - CONCLUSION: 1. No gross fracture or dislocation. 2. Degenerative changes, as above. Sandro Barreto MD Hip X-Ray 11/26/16 0000 Signed Impressions: Service Date/Time: Saturday, November 26, 2016 17:19 - CONCLUSION: Intact total hip prosthesis for technique. Mary Sánchez MD Ankle X-Ray 11/26/16 0000 Signed Impressions: Service Date/Time: Saturday, November 26, 2016 17:26 - CONCLUSION: Soft tissue swelling and no definite fracture for technique. Mary Sánchez MD Objective Remarks GENERAL: An observed transitioning from commode to bedside. Moderate shortness of breath secondary to this, which quickly subsides. SKIN: Warm and dry. HEAD: Normocephalic. EYES: No scleral icterus. No injection or drainage. NECK: Supple, trachea midline. No JVD. CARDIOVASCULAR: Regular rate and rhythm without murmurs, gallops, or rubs. RESPIRATORY: Breath sounds equal bilaterally. No accessory muscle use. GASTROINTESTINAL: Abdomen soft, non-tender, nondistended. MUSCULOSKELETAL: No cyanosis, or edema. BACK: Nontender without obvious deformity. No CVA tenderness. A/P Assessment and Plan 12/05/16 Heart rate noted to be slightly elevated around 100. Increase metoprolol slightly to 37.5 twice daily. Continue beta areli, HOMER inhibitor, Lasix.- Discussed with telephonic case manager. Patient will need to discharge to SNF. Middle age male brought as trauma alert following probable syncopal episode secondary to bradycardia: //Dislocated right hip S/P closed reduction -Status post right hip prosthesis dislocation which was reduced in the ER. Further recommendations per orthopedics. Hip Immobilizer are noted -cont to work with physical therapy appreciated assistance. //Hyperkalemia (resolved) //Pulmonary contusion versus pneumonia. received abx and nebs as per pulmonary. //Acute respiratory failure requiring mechanical ventilation //Recent episode of sepsis due to diabetic foot infection(left) -Bilateral airspace consolidation on imaging. Status post antibiotics. Appreciate pulmonology assistance. -Will need repeat imaging in 1 week at receiving facility to confirm resolution. //Diabetes mellitus. Diabetic diet ordered. Insulin sliding scale. //Non-ST elevation [place] -Appreciate cardiology assistance. //Heart block versus a flutter with 4:1 block which is now resolved //Hypertension //CHF //Cardiomyopathy //S/P AICD placement. Appreciate cardiology assistance. Continue beta areli , HOMER inhibitor, Plavix, aspirin. -A flutter with 4:1 block versus third-degree AV block Hyperkalemia treated in the ER. Repeat potassium actually came back within normal limits elevated troponin noted. Discussed with Dr. Alegre, pt S/P cardiac catheterization stent to LAD. Continue aspirin 81 mg daily. cont Lasix for diuresis if he remains hemodynamically stable. LVEF 20-25% which is new compared to his previous echo as per discussion with Dr. Alegre. AICD placement 11/30-[employer] Model [id number] right ventricular pacing, sensing and defibrillator. VVI-V. tach sensing 160-250bpm, V. fib > 250 BPM //prophy. Lovenox. Discharge Planning dc to SNF Kirt Razo MD Dec 05, 2016 15:21
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
[2016-12-05] MEDS: ENOXAPARIN SODIUM 40 MG/0.4 ML SYRINGE SQ SCH (16:36)
--- NOTE | 2016-12-05 17:47 | HHI.PR ---
Subjective Remarks 71 YOWM with Syncope, hip dislocation Had AICD placed On Two LNC Breathing better Up in chair Pt unhappy that insurance declined for Robert Objective Vital Signs Vital Signs Date Time Temp Pulse Resp B/P Pulse Ox O2 Delivery O2 Flow Rate FiO2 12/05/16 16:00 96.9 100 17 139/79 99 12/05/16 14:41 18 12/05/16 12:00 96.5 85 18 152/79 97 12/05/16 09:16 18 12/05/16 08:20 116 12/05/16 08:00 96.3 108 19 154/80 93 12/05/16 04:00 97.7 94 22 140/94 97 12/05/16 00:00 98.4 99 22 112/73 96 12/04/16 20:32 107 12/04/16 20:00 98.1 104 17 135/87 95 I/O 12/04/16 12/04/16 12/04/16 12/05/16 12/05/16 12/05/16 07:00 15:00 23:00 07:00 15:00 23:00 Intake Total 60 ml 480 ml 989 ml 308 ml 960 ml Output Total 1000 ml 1450 ml 600 ml 650 ml Balance -940 ml -970 ml 389 ml 308 ml 310 ml Intake Oral 60 ml 480 ml 240 ml 960 ml IV Total 749 ml 308 ml Output Urine Total 1000 ml 1450 ml 600 ml 650 ml Bladder Scan Volume Amount 600 ml # Voids 0 # Bowel Movements 0 1 1 1 Result Diagram: 12/02/16 0659 12/03/16 0535 Objective Remarks GENERAL: WBWN WM, NAD SKIN: Warm and dry. HEAD: Normocephalic. EYES: No scleral icterus. No injection or drainage. NECK: Supple, trachea midline. No JVD or lymphadenopathy. CARDIOVASCULAR: Regular rate and rhythm without murmurs, gallops, or rubs. RESPIRATORY: Breath sounds equal bilaterally. No accessory muscle use. GASTROINTESTINAL: Abdomen soft, non-tender, nondistended. MUSCULOSKELETAL: No cyanosis, or edema. BACK: Nontender without obvious deformity. No CVA tenderness. A/P Assessment and Plan COPD Syncope S/P AICD placement S/P Hip dislocation CAD PLAN: Supplement 02 Aerosol nebs Cont Abx SQ Lovenox DC plans for rehab Aneja,Anuel Dev MD Dec 05, 2016 17:47
[2016-12-05] MEDS: MELATONIN 5 MG TAB PO PRN (21:38)
[2016-12-06] VITALS: BP 125/76; PULSE 72; RESP 18; TEMP 98.2; O2SAT 98
[2016-12-06] MEDS: PIPERACIL-TAZO 3.375 GM PREMIX 50 ML IV SCH ×3 (01:59→15:41)
[2016-12-06 04:00] VITALS: BP 138/83; PULSE 108; RESP 18; TEMP 97.2; O2SAT 93
[2016-12-06] MEDS: CHLORHEXIDINE GLUCONATE 2 % 1 PACK (2 CLOTHS) TOP SCH (04:00)
[2016-12-06] MEDS: INSULIN ASPART SUPPLEMENTAL SCALE SQ SCH ×3 (05:08→17:35)
[2016-12-06] MEDS: oxyCODONE/ACETAMINOPHEN 10 MG/325 MG TAB PO PRN ×2 (05:08→17:32)
[2016-12-06 08:00] VITALS: BP 145/76; PULSE 87; RESP 17; TEMP 97.4; O2SAT 97
[2016-12-06] MEDS: CHLORHEXIDINE 0.12% (ORAL KIT) 15 ML CUP MT SCH (08:00)
[2016-12-06] MEDS: NYSTATIN 100,000 U/GM PWD 15 GM BTL TOPICAL SCH (09:00)
[2016-12-06] MEDS: DOCUSATE SODIUM 50 MG/SENNA 8.6 MG TAB PO SCH (09:00)
[2016-12-06] MEDS: CLOPIDOGREL 75 MG TAB PO SCH (09:46)
[2016-12-06] MEDS: ASPIRIN 81 MG CHEW TAB CHEW SCH (09:46)
[2016-12-06] MEDS: LISINOPRIL 5 MG TAB PO SCH (09:47)
[2016-12-06] MEDS: METOPROLOL TARTRATE 25 MG TAB PO SCH (09:47)
[2016-12-06] MEDS: FUROSEMIDE 20 MG/2 ML VIAL IV PUSH SCH (09:50)
[2016-12-06] MEDS: PANTOPRAZOLE SODIUM 40 MG VIAL IV SCH (09:50)
[2016-12-06] MEDS: SODIUM CHLORIDE 0.9% FLUSH 10 ML FLUSH IV FLUSH SCH (09:51)
[2016-12-06] MEDS: HYDROmorphone HCL PF 1 MG/ML VIAL IV PUSH PRN (10:04)
[2016-12-06 12:00] VITALS: BP 137/85; PULSE 90; RESP 16; TEMP 97.4; O2SAT 98
[2016-12-06] MEDS: SODIUM CHLOR 0.9% 1000 ML INJ 1,000 ML IV SCH (15:41)
[2016-12-06] MEDS: ENOXAPARIN SODIUM 40 MG/0.4 ML SYRINGE SQ SCH (15:41)
[2016-12-06 16:00] VITALS: BP 122/77; PULSE 87; RESP 16; TEMP 97.2; O2SAT 97
--- NOTE | 2016-12-06 17:43 | HHI.PR ---
Subjective Remarks 71 YOWM with Syncope, hip dislocation Had AICD placed On 02 Two LNC Breathing better Up in chair Had PT Objective Vital Signs Vital Signs Date Time Temp Pulse Resp B/P Pulse Ox O2 Delivery O2 Flow Rate FiO2 12/06/16 16:00 97.2 87 16 122/77 97 12/06/16 12:00 97.4 90 16 137/85 98 12/06/16 08:00 97.4 87 17 145/76 97 12/06/16 06:08 18 12/06/16 04:00 97.2 108 18 138/83 93 12/06/16 00:00 98.2 72 18 125/76 98 12/05/16 20:00 98.1 78 18 125/75 99 12/05/16 19:38 87 I/O 12/05/16 12/05/16 12/05/16 12/06/16 12/06/16 12/06/16 07:00 15:00 23:00 07:00 15:00 23:00 Intake Total 308 ml 960 ml 98 ml 331 ml 600 ml 360 ml Output Total 650 ml 200 ml 800 ml Balance 308 ml 310 ml -102 ml 331 ml -200 ml 360 ml Intake Oral 960 ml 600 ml IV Total 308 ml 98 ml 331 ml 360 ml Output Urine Total 650 ml 200 ml 800 ml # Voids 2 # Bowel Movements 1 1 2 2 Result Diagram: 12/02/16 0659 12/03/16 0535 Objective Remarks GENERAL: WBWN WM, NAD SKIN: Warm and dry. HEAD: Normocephalic. EYES: No scleral icterus. No injection or drainage. NECK: Supple, trachea midline. No JVD or lymphadenopathy. CARDIOVASCULAR: Regular rate and rhythm without murmurs, gallops, or rubs. RESPIRATORY: Breath sounds equal bilaterally. No accessory muscle use. GASTROINTESTINAL: Abdomen soft, non-tender, nondistended. MUSCULOSKELETAL: No cyanosis, or edema. BACK: Nontender without obvious deformity. No CVA tenderness. A/P Assessment and Plan COPD Syncope S/P AICD placement S/P Hip dislocation CAD PLAN: Supplement 02 Aerosol nebs Cont Abx SQ Lovenox DC plans for rehab Anuel Jones MD Dec 06, 2016 17:43
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
[2016-12-07] MEDS ORDERED: OXYC1TAB36 PO (11:20)
== END 2016-12-06 21:07 | DRG 224 ==
LOC: NEPI 13:41 → EDBD 16:29 → NEDA 16:29 → HIME 18:00 → N07A 12-03 20:08
PROVIDERS: ADMIT Internal Medicine; ATTEND Internal Medicine
PROC: 0SW9XJZ Revision of Synthetic Substitute in Right Hip Joint, External Approach (ICD-10-PCS; principal; 2016-11-26)
PROC: 5A1955Z Respiratory Ventilation, Greater than 96 Consecutive Hours (ICD-10-PCS; 2016-11-26)
PROC: 0BH17EZ Insertion of Endotracheal Airway into Trachea, Via Natural or Artificial Opening (ICD-10-PCS; 2016-11-26)
PROC: 4A023N7 Measurement of Cardiac Sampling and Pressure, Left Heart, Percutaneous Approach (ICD-10-PCS; 2016-11-28)
PROC: 027034Z Dilation of Coronary Artery, One Artery with Drug-eluting Intraluminal Device, Percutaneous Approach (ICD-10-PCS; 2016-11-28)
PROC: B2111ZZ Fluoroscopy of Multiple Coronary Arteries using Low Osmolar Contrast (ICD-10-PCS; 2016-11-28)
PROC: 0JH608Z Insertion of Defibrillator Generator into Chest Subcutaneous Tissue and Fascia, Open Approach (ICD-10-PCS; 2016-11-30)
PROC: 02HK3KZ Insertion of Defibrillator Lead into Right Ventricle, Percutaneous Approach (ICD-10-PCS; 2016-11-30)
DX: I44.2 Atrioventricular block, complete (principal); J96.01 Acute respiratory failure with hypoxia; I21.4 Non-ST elevation (NSTEMI) myocardial infarction; I11.0 Hypertensive heart disease with heart failure; I47.2 Ventricular tachycardia; J18.9 Pneumonia, unspecified organism; I42.9 Cardiomyopathy, unspecified; I50.9 Heart failure, unspecified; E11.621 Type 2 diabetes mellitus with foot ulcer; T84.020A Dislocation of internal right hip prosthesis, initial encounter; J44.9 Chronic obstructive pulmonary disease, unspecified; E87.5 Hyperkalemia; Z96.642 Presence of left artificial hip joint; I25.10 Atherosclerotic heart disease of native coronary artery without angina pectoris; G89.4 Chronic pain syndrome; I44.7 Left bundle-branch block, unspecified; S70.01XA Contusion of right hip, initial encounter; Y79.2 Prosthetic and other implants, materials and accessory orthopedic devices associated with adverse incidents; L97.509 Non-pressure chronic ulcer of other part of unspecified foot with unspecified severity; Z96.612 Presence of left artificial shoulder joint; Z96.611 Presence of right artificial shoulder joint; Z96.653 Presence of artificial knee joint, bilateral; Z99.81 Dependence on supplemental oxygen; Z87.891 Personal history of nicotine dependence; Z95.5 Presence of coronary angioplasty implant and graft; V48.5XXA Car driver injured in noncollision transport accident in traffic accident, initial encounter
CPT/HCPCS: 33249; 36600; 70450; 71010; 71260; 72125; 72170; 73020; 73501; 73610; 74177; 76937; 80048; 80053; 80307; 81001; 82435; 82550; 82552; 82565; 82805; 82947; 82948; 83735; 83880; 84100; 84132; 84155; 84295; 84484; 84520; 85002; 85025; 85027; 85610; 85730; 86850; 86900; 86901; 87040; 87070; 87205; 87641; 92928; 93005; 93306; 93454; 93571; 94002; 94003; 94150; 94640; 94664; 94667; C1722; C1725; C1769; C1777; C1874; C1887; C1893; C9113; J0131; J0610; J0690; J1170; J1644; J1650; J1815; J1940; J2270; J2543; J3010; J3370; J3480; J7030; J7050; J7613; Q9967